=== PATIENT | male | born 1965 | race Caucasian/White ===

== ENCOUNTER 2016-10-08 15:02 | Emergency (ER) | payer BC, OTHER ==
[~2016-10-08] VITALS: Ht 182.9 cm; Wt 91.8 kg
[2016-10-08 15:16] VITALS: BP 176/95; TEMP 37.2; Ht 182.9 cm; Wt 91.8 kg
[2016-10-08] MEDS ORDERED: TRAM-10 PO (15:47)
[2016-10-08] MEDS ORDERED: NAPR1TAB9 PO (15:59)
[2016-10-08 16:25] VITALS: PULSE 93; O2SAT 98
--- NOTE | 2016-10-08 16:44 | EMERGENCY ROOM VISIT NOTE ---
History First contact with patient: 15:18 Chief Complaint: HAND PAIN/INJURY Stated Complaint: PAIN IN HAND, LUMP ON IT History of Present Illness The patient is a 51 year old male who presents to the Emergency Room with complaints of multiple joint pain and swelling. The patient reports that he has noticed discomfort for the past 6 months. He has been treating his symptoms with NSAIDs without relief. He currently does not have a family doctor. He denies any family history of inflammatory joint conditions. The patient denies any fevers or chills, headache or other illnesses. He has not noticed any redness or increased temperature of his joints. The pain is usually worse in the morning after awakening. He rates his discomfort a 2 out of 10. Review of Systems 10 system review was performed and was negative except for pertinent positives and negatives as indicated in history of present illness Past Medical/Surgical History Medical Problems: (1) Carpal Tunnel Syndrome Surgical Problems: (1) No history of previous surgery Social History Smoking Status: Never Smoker Alcohol Use: occasionally Marital Status: Occupation Status: employed Current/Historical Medications Scheduled Naproxen (Aleve), 660 MG PO PRN Scheduled PRN Tramadol (Ultram), 1-2 TAB PO Q4H PRN for Pain Allergies Coded Allergies: No Known Allergies (Unverified , 10/08/16) Physical Exam Vital Signs Date Time Temp Pulse Resp B/P Pulse Ox O2 Delivery O2 Flow Rate FiO2 10/08/16 16:25 93 18 98 10/08/16 15:16 37.2 97 18 176/95 96 Room Air Pain Rating (0-10): 5.0 Physical Exam CONSTITUTIONAL: Healthy and well nourished. Alert and oriented X 3 with positive affect. HEENT: Normocephalic, atraumatic. Pupils equal, round and reactive. Sclerae icterus or conjunctival injection/pallor. OROPHARYNX: No tonsillar hypertrophy or exudates. NECK: Full active range of motion without discomfort. No JVD or carotid bruits. LYMPHATICS: No adenopathy appreciated. RESPIRATORY: Clear to auscultation bilaterally with no wheezing, crackles, rhonchi or stridor. CARDIOVASCULAR: Regular rate and rhythm with a grade 2/6 systolic ejection murmur at Erb's point. No rubs or gallops. GASTROINTESTINAL: Bowel sounds present in all quadrants. Soft and nontender to palpation. No hepatosplenomegaly. MUSCULOSKELETAL: Full range of motion of all joints without discomfort. The patient does have inflammation of the MCP joints. He also has a soft mass on the dorsal left wrist. He also has inflammation of bilateral ankles. The patient has no erythema over the joints. INTEGUMENTARY: No rash or other significant dermatologic conditions noted. NEUROLOGIC: Cranial nerves II-XII grossly intact. No focal neurologic deficits noted. Medical Decision & Procedures ED Course Patient history and physical exam were performed. Nurse's notes were reviewed. Vital signs were reviewed and were normal. I expressed my concern for an inflammatory arthritis. The patient was provided contact information for the [facility] rheumatology office. He was encouraged to alternate ibuprofen and Tylenol for baseline pain relief. He was provided a prescription for Ultram as needed for breakthrough pain. The patient was happy with plan of care, and will follow-up with rheumatology for further workup. Impression Primary Impression: Polyarthropathy or polyarthritis of multiple sites Departure Information Dispostion Home / Self-Care Prescriptions Tramadol (Ultram) 50 Mg Tab 1-2 TAB PO Q4H Y for Pain, #30 TAB For Initial Treatment Prov: Wagner Smith PA 10/08/16 Referrals Annalee Padilla MD Forms HOME CARE DOCUMENTATION FORM, IMPORTANT VISIT INFORMATION Patient Instructions My [facility] Additional Instructions Follow-up with [facility] rheumatology office (Dr. Annalee Padilla) for further reevaluation and workup. Call the office for an appointment, and tell them that you were seen in the emergency department and concern for a possible inflammatory arthritis. Ibuprofen 800 mg and/or Tylenol 1000 mg every 8 hours. You may also alternate these medications for more effective pain relief: Ibuprofen --4 HRS--> Tylenol --4 HRS--> ibuprofen --4 HRS--> Tylenol .... Take Ultram as prescribed and as needed for additional pain relief. Ultram should not make you drowsy.
== END 2016-10-08 16:00 | disposition home or self-care (01) ==
LOC: C.EDB 15:05 → C.EDD 16:00
DX: M13.0 Polyarthritis, unspecified (principal)

== ENCOUNTER → 2016-10-30 | Outpatient (CLI) | payer BC ==
[~2016-10-30] MED LIST: NAPR1TAB9 PO; TRAM-10 PO
[2016-10-30 09:20] LABS: BASO % 0.6 %; BASO ABS # 0.03 K/uL (0-0.2); COMPLETE YES; EOS % 1.9 %; HEMATOCRIT 32.7 % (42-52); IG% 0.2 %; LYMPH % 26.3 %; LYMPH ABS # 1.37 K/uL (1.2-3.4); MEAN CELL VOLUME 74.8 fL (80-100); MEAN CORPUSCULAR HEMOGLOBIN 24.3 pg (25-34); MEAN CORPUSCULAR HGB CONC 32.4 g/dl (32-36); MEAN PLATELET VOLUME 9.3 fL (7.4-10.4); MONO % 11.5 %; NEUT % 59.5 %; PLATELET COUNT 386 K/uL (130-400); RED BLOOD COUNT 4.37 M/uL (4.7-6.1)
[2016-10-30 09:49] LABS: BLOOD UREA NITROGEN 8 mg/dl (7-18); BUN/CREATININE RATIO 9.7 (10-20); CALCIUM 8.7 mg/dl (8.5-10.1); CARBON DIOXIDE 25 mmol/L (21-32); CHLORIDE 100 mmol/L (98-107); CREATININE 0.77 mg/dl (0.60-1.40); GLUCOSE 312 mg/dl (70-99); SODIUM 133 mmol/L (136-145)
[2016-10-30 09:52] LABS: ALKALINE PHOSPHATASE 84 U/L (45-117); ALT/SGPT 19 U/L (12-78); AST/SGOT 9 U/L (15-37); CHOLESTEROL 139 mg/dl (0-200); CHOLESTEROL/HDL RATIO 4.3; HDL CHOLESTEROL 32 mg/dl; LDL CHOLESTEROL CALCULATED 86 mg/dl; TRIGLYCERIDES 104 mg/dl (0-150); VERY LOW DENSITY LIPOPROT CALC 21 mg/dl
[2016-10-30 09:59] LABS: ALB/GLOB RATIO 0.5 (0.9-2)
[2016-10-30 11:07] LABS: LYME DISEASE AB IGG NEG (NEG); LYME DISEASE AB IGM NEG (NEG)
== END | disposition home or self-care (01) ==
LOC: C.LAB 08:25
PROVIDERS: ATTEND Neuromusculoskeletal Medicine & OMM
DX: Z00.00 Encounter for general adult medical examination without abnormal findings (principal); K62.5 Hemorrhage of anus and rectum; R35.0 Frequency of micturition; M19.90 Unspecified osteoarthritis, unspecified site; R35.8 Other polyuria

== ENCOUNTER → 2016-11-06 | Outpatient (CLI) | payer BC ==
[2016-11-06 10:05] LABS: ESTIMATED AVERAGE GLUCOSE 292 mg/dl; HA1C FLAG Normal (Normal)
== END | disposition home or self-care (01) ==
LOC: C.LAB 07:46
PROVIDERS: ATTEND Neuromusculoskeletal Medicine & OMM
DX: E11.9 Type 2 diabetes mellitus without complications (principal)

== ENCOUNTER → 2016-11-22 | Outpatient (CLI) | payer BC ==
[2016-11-22 12:23] LABS: BASO % 0.5 %; BASO ABS # 0.03 K/uL (0-0.2); COMPLETE YES; EOS % 0.9 %; HEMATOCRIT 33.5 % (42-52); IG% 0.4 %; LYMPH % 26.2 %; LYMPH ABS # 1.45 K/uL (1.2-3.4); MEAN CORPUSCULAR HEMOGLOBIN 22.7 pg (25-34); MEAN PLATELET VOLUME 9.3 fL (7.4-10.4); MONO % 13.5 %; NEUT % 58.5 %; PLATELET COUNT 395 K/uL (130-400); RED BLOOD COUNT 4.59 M/uL (4.7-6.1); WHITE BLOOD COUNT 5.54 K/uL (4.8-10.8)
[2016-11-22 12:34] LABS: PROTHROMBIN TIME (PATIENT) 10.8 SECONDS (9.0-12.0)
[2016-11-22 13:08] LABS: TOTAL IRON BINDING CAPACITY 224 mcg/dl (250-450)
== END | disposition home or self-care (01) ==
LOC: C.LABPVFM 10:36
PROVIDERS: ATTEND Neuromusculoskeletal Medicine & OMM
DX: R04.0 Epistaxis (principal); R53.83 Other fatigue; D64.9 Anemia, unspecified

== ENCOUNTER → 2016-11-22 | Outpatient (CLI) | payer BC ==
--- NOTE | 2016-11-22 15:51 | DIAGNOSTIC IMAGING REPORT ---
LEFT HAND 3 VIEWS CLINICAL HISTORY: Hand pain. FINDINGS: 3 views of the left hand are obtained. No prior studies are available for comparison at the time of dictation. No acute fracture is seen. The skeletal structures appear osteopenic. There is advanced arthritic change and joint space loss seen throughout the wrist involving the radiocarpal articulation, the intercarpal joints, and at the carpometacarpal articulations. There is associated bony sclerosis and subchondral cyst formation. Only minimal osteoarthritic change is present involving the first metacarpophalangeal joint and the interphalangeal joints. Erosions are questioned in the second, fourth, and fifth metacarpal heads. A radiodense/metallic foreign body is present between the first and second metacarpals. There is nonspecific irregularity along the radial shaft of the second metacarpal. IMPRESSION: 1. No acute bony abnormal is identified. 2. Advanced arthritic change is present throughout the wrist with near loss of the joint spaces. 3. Question small erosions involving the second, fourth, and fifth metacarpal heads. 4. A radiodense/metallic foreign body is present between the first and second metacarpals. Electronically signed by: Rohan Pereyra M.D. 11/22/2016 3:49 PM Dictated Date/Time: 11/22/2016 3:46 PM
--- NOTE | 2016-11-22 15:51 | DIAGNOSTIC IMAGING REPORT ---
TWO VIEW CHEST CLINICAL HISTORY: Fatigue. FINDINGS: PA and lateral chest radiographs are obtained. No prior studies are available for comparison at the time of dictation. The heart is top normal for projection. The mediastinal contour is within normal limits. The lungs and pleural spaces are clear. There is no pneumothorax. The skeletal structures are osteopenic. The bony thorax appears intact. IMPRESSION: No active disease in the chest. Electronically signed by: Rohan Pereyra M.D. 11/22/2016 3:50 PM Dictated Date/Time: 11/22/2016 3:49 PM
--- NOTE | 2016-11-22 15:54 | DIAGNOSTIC IMAGING REPORT ---
RIGHT HAND 3 VIEWS HISTORY: R53.83 [id number] Rheumatoid [id number] Long-term use of Right COMPARISON: None. FINDINGS: There is no fracture or dislocation. Small erosions at the heads of the second and third metacarpals. Mild cartilage space narrowing within the wrist. Mild osteoarthritis of the DIP and PIP joints. Bone mineralization is intact. No radiopaque foreign bodies. 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 Electronically signed by: Brant Mohan M.D. 11/22/2016 3:53 PM Dictated Date/Time: 11/22/2016 3:50 PM
[2016-11-28 05:01] LABS: ANTI-CENTROMERE AB <1.0 NEG AI (<1.0 NEG); ANTI-SS-A <1.0 NEG AI (<1.0 NEG); ANTI-SS-B <1.0 NEG AI (<1.0 NEG); DNA ds CRITHIDIA NEGATIVE (NEGATIVE); PARVOVIRUS IgG INDEX 2.2 (<0.9); PARVOVIRUS IgM INDEX 0.1 (<0.9); Sm Antibody <1.0 NEG AI (<1.0 NEG)
== END | disposition home or self-care (01) ==
LOC: C.RAD1850 15:07
PROVIDERS: ATTEND Internal Medicine Rheumatology
DX: M06.9 Rheumatoid arthritis, unspecified (principal); R53.83 Other fatigue; M19.032 Primary osteoarthritis, left wrist; Z79.899 Other long term (current) drug therapy; Z18.10 Retained metal fragments, unspecified

== ENCOUNTER → 2017-01-31 | Outpatient (CLI) | payer BC ==
[2017-01-31 12:17] LABS: BASO % 0.3 %; BASO ABS # 0.02 K/uL (0-0.2); EOS % 0.3 %; HEMATOCRIT 39.4 % (42-52); IG% 1.7 %; LYMPH % 20.9 %; LYMPH ABS # 1.23 K/uL (1.2-3.4); MEAN CELL VOLUME 79.8 fL (80-100); MEAN CORPUSCULAR HEMOGLOBIN 27.3 pg (25-34); MEAN CORPUSCULAR HGB CONC 34.3 g/dl (32-36); MEAN PLATELET VOLUME 9.5 fL (7.4-10.4); MONO % 7.1 %; NEUT % 69.7 %; PLATELET COUNT 187 K/uL (130-400); RED BLOOD COUNT 4.94 M/uL (4.7-6.1); WHITE BLOOD COUNT 5.88 K/uL (4.8-10.8)
[2017-01-31 12:27] LABS: ALT/SGPT 39 U/L (12-78); CREATININE 0.99 mg/dl (0.60-1.40)
[2017-01-31 12:30] LABS: ALKALINE PHOSPHATASE 65 U/L (45-117); AST/SGOT 10 U/L (15-37)
[2017-01-31 13:00] LABS: ANISOCYTOSIS PRESENT; COMPLETE YES; MICROCYTOSIS PRESENT
== END | disposition home or self-care (01) ==
LOC: C.LAB1850 10:44
PROVIDERS: ATTEND Internal Medicine Rheumatology
DX: Z79.899 Other long term (current) drug therapy (principal); M06.9 Rheumatoid arthritis, unspecified

== ENCOUNTER → 2017-03-14 | Outpatient (CLI) | payer BC ==
[2017-03-14 10:47] LABS: BASO % 0.8 %; BASO ABS # 0.05 K/uL (0-0.2); COMPLETE YES; EOS % 1.4 %; HEMATOCRIT 41.3 % (42-52); IG% 0.8 %; LYMPH % 33.9 %; LYMPH ABS # 2.11 K/uL (1.2-3.4); MEAN CELL VOLUME 89.6 fL (80-100); MEAN CORPUSCULAR HEMOGLOBIN 28.6 pg (25-34); MEAN PLATELET VOLUME 9.5 fL (7.4-10.4); MONO % 8.2 %; NEUT % 54.9 %; PLATELET COUNT 203 K/uL (130-400); RED BLOOD COUNT 4.61 M/uL (4.7-6.1); WHITE BLOOD COUNT 6.23 K/uL (4.8-10.8)
[2017-03-14 11:15] LABS: ALT/SGPT 32 U/L (12-78); CREATININE 0.83 mg/dl (0.60-1.40)
[2017-03-14 11:18] LABS: ALKALINE PHOSPHATASE 56 U/L (45-117); AST/SGOT 14 U/L (15-37)
== END | disposition home or self-care (01) ==
LOC: C.LAB1850 09:26
PROVIDERS: ATTEND Internal Medicine Rheumatology
DX: D64.9 Anemia, unspecified (principal); M06.9 Rheumatoid arthritis, unspecified; Z51.81 Encounter for therapeutic drug level monitoring; Z79.899 Other long term (current) drug therapy

== ENCOUNTER → 2017-07-15 | Outpatient (CLI) | payer BC ==
[~2017-07-15] MED LIST changes: -TRAM-10 PO
[2017-07-15 15:43] LABS: BASO % 0.4 %; BASO ABS # 0.02 K/uL (0-0.2); EOS ABS # 0.09 K/uL (0-0.5); HEMATOCRIT 39.9 % (42-52); HEMOGLOBIN 13.6 g/dL (14.0-18.0); IG# 0.01 K/uL (0.00-0.02); LYMPH % 33.2 %; LYMPH ABS # 1.51 K/uL (1.2-3.4); MEAN CELL VOLUME 86.2 fL (80-100); MEAN CORPUSCULAR HEMOGLOBIN 29.4 pg (25-34); MEAN CORPUSCULAR HGB CONC 34.1 g/dl (32-36); MONO % 9.7 %; MONO ABS # 0.44 K/uL (0.11-0.59); NEUT % 54.5 %; NEUT ABS # 2.48 K/uL (1.4-6.5); PLATELET COUNT 255 K/uL (130-400); RED CELL DISTRIBUTION WIDTH CV 13.5 % (11.5-14.5); RED CELL DISTRIBUTION WIDTH SD 41.9 fL (36.4-46.3); WHITE BLOOD COUNT 4.55 K/uL (4.8-10.8)
[2017-07-15 16:02] LABS: ALBUMIN 3.5 gm/dl (3.4-5.0); ALT/SGPT 28 U/L (12-78); CREATININE 1.04 mg/dl (0.60-1.40)
[2017-07-15 16:05] LABS: ALKALINE PHOSPHATASE 72 U/L (45-117); AST/SGOT 11 U/L (15-37); TOTAL PROTEIN 7.9 gm/dl (6.4-8.2)
== END | disposition home or self-care (01) ==
LOC: C.LAB1850 13:27
PROVIDERS: ATTEND Internal Medicine Rheumatology
DX: M06.9 Rheumatoid arthritis, unspecified (principal); Z79.899 Other long term (current) drug therapy

== ENCOUNTER → 2017-07-25 | Outpatient (CLI) | payer BC ==
[2017-07-25 13:21] LABS: HEMOGLOBIN A1C 8.8 % (4.5-5.6)
[2017-07-25 13:54] LABS: ALBUMIN 3.8 gm/dl (3.4-5.0); ALT/SGPT 30 U/L (12-78); AST/SGOT 17 U/L (15-37); BLOOD UREA NITROGEN 11 mg/dl (7-18); CALCIUM 9.3 mg/dl (8.5-10.1); CARBON DIOXIDE 22 mmol/L (21-32); CHOLESTEROL 198 mg/dl (0-200); CREATININE 0.85 mg/dl (0.60-1.40); GLUCOSE 237 mg/dl (70-99); POTASSIUM 4.4 mmol/L (3.5-5.1); SODIUM 131 mmol/L (136-145)
[2017-07-25 14:04] LABS: ALKALINE PHOSPHATASE 67 U/L (45-117); LDL CHOLESTEROL CALCULATED 105 mg/dl; TOTAL PROTEIN 8.2 gm/dl (6.4-8.2)
== END | disposition home or self-care (01) ==
LOC: C.LAB1850 11:34
PROVIDERS: ATTEND Neuromusculoskeletal Medicine & OMM
DX: Z00.00 Encounter for general adult medical examination without abnormal findings (principal); E11.9 Type 2 diabetes mellitus without complications

== ENCOUNTER → 2017-08-15 | Outpatient (CLI) | payer BC ==
--- NOTE | 2017-08-15 10:11 | DIAGNOSTIC IMAGING REPORT ---
CHEST 2 VIEWS ROUTINE HISTORY: Positive PPD. COMPARISON: Chest 11/20/2016. FINDINGS: The lungs are clear. Cardiac silhouette is mildly enlarged. No pleural effusions. No pneumothorax. IMPRESSION: Mild cardiomegaly. Otherwise, no acute process within the chest. Electronically signed by: Brant Mohan M.D. 08/15/2017 10:10 AM Dictated Date/Time: 08/15/2017 10:07 AM
== END | disposition home or self-care (01) ==
LOC: C.RAD1850 09:58
PROVIDERS: ATTEND Internal Medicine Rheumatology
DX: R76.11 Nonspecific reaction to tuberculin skin test without active tuberculosis (principal); M06.9 Rheumatoid arthritis, unspecified; Z79.52 Long term (current) use of systemic steroids; Z79.899 Other long term (current) drug therapy

== ENCOUNTER → 2017-09-10 | Outpatient (CLI) | payer BC ==
[2017-09-10 09:45] LABS: BASO % 0.7 %; BASO ABS # 0.03 K/uL (0-0.2); EOS % 1.6 %; EOS ABS # 0.07 K/uL (0-0.5); HEMATOCRIT 40.2 % (42-52); HEMOGLOBIN 13.3 g/dL (14.0-18.0); IG# 0.01 K/uL (0.00-0.02); LYMPH % 43.7 %; LYMPH ABS # 1.91 K/uL (1.2-3.4); MEAN CELL VOLUME 83.9 fL (80-100); MEAN CORPUSCULAR HEMOGLOBIN 27.8 pg (25-34); MEAN CORPUSCULAR HGB CONC 33.1 g/dl (32-36); MEAN PLATELET VOLUME 9.5 fL (7.4-10.4); MONO % 9.8 %; MONO ABS # 0.43 K/uL (0.11-0.59); NEUT ABS # 1.92 K/uL (1.4-6.5); PLATELET COUNT 226 K/uL (130-400); RED CELL DISTRIBUTION WIDTH CV 14.4 % (11.5-14.5); RED CELL DISTRIBUTION WIDTH SD 43.5 fL (36.4-46.3); WHITE BLOOD COUNT 4.37 K/uL (4.8-10.8)
[2017-09-10 10:11] LABS: ALBUMIN 3.7 gm/dl (3.4-5.0); ALT/SGPT 39 U/L (12-78); CREATININE 0.92 mg/dl (0.60-1.40)
[2017-09-10 10:14] LABS: ALKALINE PHOSPHATASE 70 U/L (45-117); AST/SGOT 14 U/L (15-37); TOTAL PROTEIN 7.7 gm/dl (6.4-8.2)
[2017-09-14 10:15] LABS: QUANTIFERON NEGATIVE (NEGATIVE); QUANTIFERON NIL 0.02 IU/ML
== END | disposition home or self-care (01) ==
LOC: C.LAB 09:01
PROVIDERS: ATTEND Internal Medicine Rheumatology
DX: M06.9 Rheumatoid arthritis, unspecified (principal); Z79.899 Other long term (current) drug therapy; Z79.52 Long term (current) use of systemic steroids; R76.11 Nonspecific reaction to tuberculin skin test without active tuberculosis

== ENCOUNTER 2024-07-19 22:40 | Inpatient (IN) ==
--- NOTE | 2024-07-19 23:09 | Emergency Department Note ---
Impression & Plan Acute hyponatremia, Fatigue, Influenza A, Pancytopenia, Acute anterior epistaxis ED Provider Note NAME: LUCAS VARELA AGE: 59 SEX: M : 1965 ARRIVES VIA: Walk-In INFORMANT: Patient, ED PROVIDER(S): Heriberto Brush MD CHIEF COMPLAINT: Nosebleed, cough MEDICAL DECISION MAKING: Patient presents with the above. IV was established and blood work is obtained. Afrin was ordered and applied to the left naris. BioFire also obtained along with a chest x-ray. Patient's blood work does show pancytopenia with a platelet count of 61,000. Initial hemoglobin of 12.7. Patient's kidney function is unremarkable but significant electrolyte derangements with a sodium of 118 which is new from hyponatremia noted June 15 at 131. Urine and serum osmolality ordered along with urine electrolytes. Initial calcium of 8.4. Patient was ordered 1 g for replacement. Urinalysis does not show evidence of obvious infection. BioFire negative but positive for influenza A. Tamiflu deferred to inpatient service. Chest x-ray without obvious pneumonia. Given the patient's significant hyponatremia I did speak the on-call hospital service Dr. Leggett and the patient was admitted to the medicine service. Patient still had bleeding from the naris after Afrin and TXA nebulizer treatment initiated. Subsequent reassessment no further bleeding from the naris. Procedures: Epistaxis Procedure Indication: Epistaxis Verbal consent obtained. Risks and benefits were explained with the usual customary discussion. Afrin applied and unsuccesful so nebulized TXA administered. The patient tolerated this well. Hemostasis was achieved. No complications. Discussion w/ other healthcare providers: None Prior /Outside records reviewed: none Differential diagnosis: Infection, dehydration, metabolic abnormality, hypo/hyperglycemia, electrolyte imbalance, anemia, UTI, pneumonia, thyroid dysfunction among others were considered. Diagnostics, as interpreted by me: ECG: Normal sinus rhythm, rate 92, normal intervals, normal axis no ST elevations. Cardiac monitoring: An order was placed for continuous cardiac monitoring. The monitor shows a rate of 88 with sinus rhythm. Patient was placed on pulse oximetry Medical decision rules: None Imaging studies: I informally interpreted the patient's chest x-ray does not show obvious pneumonia with formal report to follow. HPI: Patient presents due to concern for nosebleeding which is been intermittent over the last 3 days. No reported trauma. The patient has had some fatigability and associated cough. The patient has had a cough ongoing for the last 4 weeks but it is nonproductive. Patient's states that they are both sick. 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 Patient does not take any antiplatelets or blood thinners. Patient was having intermittent nosebleeding from the left naris. No reported nose picking. Patient quit smoking about 5 or 6 years ago. He did not do anything for the nosebleeding except applying pressure using rudimentary packing with Kleenex and removing this. No reported abdominal pain or nausea vomiting. PAST MEDICAL HISTORY: See Below PAST SURGICAL HISTORY: See Below SOCIAL HISTORY: See Below HOME MEDICATIONS: See Below ALLERGIES: See Below VITALS: See Below PHYSICAL EXAMINATION: GENERAL: NAD, non-toxic. Nasal clamp in place. EYE EXAM: Normal conjunctiva. PERRL, no anisocoria and EOM's grossly intact w/o pain. Nose: Bleeding from left naris. OROPHARYNX: Moist mucus membranes, grossly normal dentition. Posterior pharynx with scant amount of blood. NECK: Trachea midline, no stridor. Supple, no nuchal rigidity, no adenopathy, non-tender. No signs of meningismus. FROM of the neck with good chin to chest and neck extension. LUNGS: Clear to auscultation. Normal chest wall mechanics. HEART: NSR, no MRG. ABDOMEN: Abdomen soft, non-tender, no masses, no rebound or guarding. BACK: No CVA TTP. SKIN: No rashes and no bruising. UPPER EXTREMITIES: Upper extremities are grossly normal. LOWER EXTREMITIES: Grossly normal, no edema. NEURO EXAM: A&O x3, cranial nerves II-XII grossly intact, normal speech, moves all 4 extremities. 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) use of systemic steroids Long-term use of immunosuppressant medication Mouth ulcers Oral thrush Positive purified protein derivative (PPD) skin test with negative chest x-ray Rectal bleeding Polyarthropathy or polyarthritis of multiple sites Surgical History H/O oral surgery Family History Mother Diabetes Father Diabetes Brother Diabetes Denies family history of Ovarian cancer Prostate cancer Myocardial infarction Breast cancer Colorectal cancer Social History Smoking Status: Former smoker Tobacco Type: Cigars Age Started Using Tobacco: 14; Age Quit Using Tobacco: 48; packs per day: 1; Second Hand Exposure: No; Do You Dip or Chew Tobacco: No; Hx Alcohol Use: No Hx Substance Use: No Preferred Language: Faroese Communication Ability: Effective Visual Impairment: No Limitations Hearing Ability: Normal [employer] Required: No Beliefs That Will Affect Care: None marital status: Current Living Situation: Spouse current occupational status: employed 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 How many Children do You have: 2 Feels Safe at Home: Yes Safety Concerns: Feels Safe At This Time Childhood Exposure to Second-Hand Smoke: No Diet: regular caffeine: Yes during the past year weight has: remained stable Dental Care, Regularly: No Physical Activity Frequency: Does not Exercise Seatbelt Use: always Sunscreen Use: No Assistive Devices: None Allergies Allergies Allergy/AdvReac Type Severity Reaction Status Date / Time No Known Allergies Allergy Unverified 05/28/24 09:38 Home Meds Home Medications Medication Instructions Recorded Confirmed atorvastatin 20 mg tablet 20 mg PO DAILY 07/20/24 07/20/24 meloxicam 15 mg tablet 15 mg PO DAILY 07/20/24 07/20/24 Previous Rx's Medication Instructions Recorded empagliflozin 25 mg tablet 25 mg PO DAILY #90 tabs 05/28/24 fenofibrate nanocrystallized 145 145 mg PO DAILY #90 tabs 05/28/24 mg tablet lisinopril 20 mg tablet 20 mg PO DAILY #90 tabs 05/28/24 metformin 1,000 mg tablet 1,000 mg PO BID #180 tabs 05/28/24 glipizide 10 mg tablet 10 mg PO BID #60 tabs 06/21/24 Results & Data (ED) Vital Signs Vital Signs - 24 hr 07/19/24 22:44 07/19/24 22:58 07/19/24 23:24 Temperature 36.6 C Temperature Source Temporal Artery Scan Pulse Rate 97 H 87 Pulse Rate [Apical] 94 H Pulse Rhythm [Apical] Regular Pulse Strength [Apical] Normal Respiratory Rate 16 20 Respiratory Effort / Characteristics Non-Labored Spontaneous Respiratory Depth Normal Normal Respiratory Pattern Regular Blood Pressure 134/79 Blood Pressure [Right Arm] 132/77 Blood Pressure Mean 97 Blood Pressure Mean [Right Arm] 95 Pulse Oximetry 94 98 Oxygen Delivery Method Room Air Room Air Sepsis Recent Fever Within 48 Hours No Sepsis New/Unexplained Change in Mental Status No Sepsis Action Taken by Nursing No Action Required 07/19/24 23:40 07/20/24 00:00 07/20/24 01:00 Temperature Temperature Source Pulse Rate 88 84 Pulse Rate [Apical] Pulse Rhythm [Apical] Pulse Strength [Apical] Respiratory Rate 26 H 24 Respiratory Effort / Characteristics Respiratory Depth Respiratory Pattern Blood Pressure 150/77 H 134/69 Blood Pressure [Right Arm] Blood Pressure Mean 114 86 Blood Pressure Mean [Right Arm] Pulse Oximetry 96 97 97 Oxygen Delivery Method Room Air Sepsis Recent Fever Within 48 Hours Sepsis New/Unexplained Change in Mental Status Sepsis Action Taken by Nursing 07/20/24 01:30 Temperature Temperature Source Pulse Rate Pulse Rate [Apical] Pulse Rhythm [Apical] Pulse Strength [Apical] Respiratory Rate Respiratory Effort / Characteristics Respiratory Depth Respiratory Pattern Blood Pressure 158/85 H Blood Pressure [Right Arm] Blood Pressure Mean 118 Blood Pressure Mean [Right Arm] Pulse Oximetry Oxygen Delivery Method Sepsis Recent Fever Within 48 Hours Sepsis New/Unexplained Change in Mental Status Sepsis Action Taken by [facility] Medications Current Medication List: was personally reviewed by me Laboratory Data Attestation: I reviewed the patient's lab results. 07/20/24 03:11 07/20/24 03:11 Lab Results 07/19/24 07/19/24 07/20/24 Range/Units 23:23 23:34 00:01 WBC 3.49 L (4.8-10.8) K/ul RBC 4.51 L (4.70-6.10) M/uL Hgb 12.7 L (14.0-18.0) g/dl Hct 35.7 L (42.0-52.0) % MCV 79.2 L (80.0-100.0) fL MCH 28.2 (25.0-34.0) pg MCHC 35.6 (32.0-36.0) g/dL RDW Std Deviation 40.4 (36.4-46.3) fL RDW Coeff of Xin 14.0 (11.5-14.5) % Plt Count 61 L (130-400) K/uL MPV 11.4 (9.4-12.4) fL Immature Gran % (Auto) 0.6 % Neut % (Auto) 74.2 % Lymph % (Auto) 15.5 % [place] % (Auto) 9.7 % Eos % (Auto) 0.0 % Baso % (Auto) 0.0 % Neut # (Auto) 2.59 (1.40-6.50) K/uL Lymph # (Auto) 0.54 L (1.20-3.40) K/uL [place] # (Auto) 0.34 (0.11-0.59) K/uL Eos # (Auto) 0.00 (0.00-0.50) K/uL Baso # (Auto) 0.00 (0.00-0.20) K/uL Immature Gran # (Auto) 0.02 (0.01-0.20) K/uL Platelet Estimate Decreased L (Normal) RBC Morphology Unremarkable PT 9.8 (9.0-12.0) Seconds INR 0.9 (0.9-1.1) APTT 32 H (21-31) Seconds PTT Ratio 1.2 Sodium 118 L* (136-145) mmol/L Potassium 3.6 (3.5-5.1) mmol/L Chloride 86 L (98-107) mmol/L Carbon Dioxide 17 L (21-32) mmol/L Anion Gap 15 H (3-11) BUN 21 (6-23) mg/dl Creatinine 1.12 (0.6-1.4) mg/dl Est Cr Clr Drug Dosing 77.4 ml/min eGFR 74.74 BUN/Creatinine Ratio 18.8 (10-20) Glucose 223 H (70-99(Fasting)) mg/dl Osmolality 266 L (280-300) mOsm/kg Calcium 8.4 L (8.6-10.3) mg/dl Phosphorus 3.6 (2.5-4.9) mg/dl Magnesium 2.1 (1.7-2.4) mg/dl Total Bilirubin 0.9 (0.2-1.0) mg/dl AST 27 (13-39) U/L ALT 17 (7-52) U/L Alkaline Phosphatase 52 (34-104) U/L Total Protein 7.5 (6.0-8.3) gm/dl Albumin 3.7 (3.4-5.0) gm/dl Globulin 3.8 (2.5-4.0) gm/dl Albumin/Globulin Ratio 1.0 (0.9-2) TSH 0.748 (0.300-4.500) uIu/ml Urine Color Urine Appearance (Clear) Urine pH (4.5-7.5) Ur Specific [place] (1.000-1.030) Urine Protein (Negative) Urine Glucose (UA) (Negative) Urine Ketones (Negative) Urine Blood (Negative) Urine Nitrite (Negative) Urine Bilirubin (Negative) Urine Urobilinogen (Negative) Ur Leukocyte Esterase (Negative) Urine WBC (Auto) (0-5) /hpf Urine RBC (Auto) (0-2) /hpf U Hyaline Cast (Auto) (0-2) /lpf U Epithel Cells (Auto) (0-2) /hpf Urine Bacteria (Auto) (None Seen) Urine Osmolality (500-800) mOsm/kg Urine Sodium mmol/L Urine Potassium mmol/L Urine Chloride mmol/L Nasal Influ A H1 2008 PCR DETECTED A (NotDetected) Adenovirus (PCR) Not Detected (NotDetected) B. pertussis DNA (PCR) Not Detected (NotDetected) B.parapertussis DNA PCR Not Detected (NotDetected) C. pneumoniae DNA (PCR) Not Detected (NotDetected) Coronavirus OC43 (PCR) Not Detected (NotDetected) Coronavirus HKU1 (PCR) Not Detected (NotDetected) Coronavirus 229E (PCR) Not Detected (NotDetected) SARS-CoV-2 (PCR) Not Detected (NotDetected) Coronavirus NL63 (PCR) Not Detected (NotDetected) Human Metapneumovir PCR Not Detected (NotDetected) Influenza Type B (PCR) Not Detected (NotDetected) M. pneumoniae (PCR) Not Detected (NotDetected) Parainfluenza 1 (PCR) Not Detected (NotDetected) Parainfluenza 2 (PCR) Not Detected (NotDetected) Parainfluenza 3 (PCR) Not Detected (NotDetected) Parainfluenza 4 (PCR) Not Detected (NotDetected) RSV (PCR) Not Detected (NotDetected) Entero/Rhino (PCR) Not Detected (NotDetected) 07/20/24 Range/Units 01:23 WBC (4.8-10.8) K/ul RBC (4.70-6.10) M/uL Hgb (14.0-18.0) g/dl Hct (42.0-52.0) % MCV (80.0-100.0) fL MCH (25.0-34.0) pg MCHC (32.0-36.0) g/dL RDW Std Deviation (36.4-46.3) fL RDW Coeff of Xin (11.5-14.5) % Plt Count (130-400) K/uL MPV (9.4-12.4) fL Immature Gran % (Auto) % Neut % (Auto) % Lymph % (Auto) % [place] % (Auto) % Eos % (Auto) % Baso % (Auto) % Neut # (Auto) (1.40-6.50) K/uL Lymph # (Auto) (1.20-3.40) K/uL [place] # (Auto) (0.11-0.59) K/uL Eos # (Auto) (0.00-0.50) K/uL Baso # (Auto) (0.00-0.20) K/uL Immature Gran # (Auto) (0.01-0.20) K/uL Platelet Estimate (Normal) RBC Morphology PT (9.0-12.0) Seconds INR (0.9-1.1) APTT (21-31) Seconds PTT Ratio Sodium (136-145) mmol/L Potassium (3.5-5.1) mmol/L Chloride (98-107) mmol/L Carbon Dioxide (21-32) mmol/L Anion Gap (3-11) BUN (6-23) mg/dl Creatinine (0.6-1.4) mg/dl Est Cr Clr Drug Dosing ml/min eGFR BUN/Creatinine Ratio (10-20) Glucose (70-99(Fasting)) mg/dl Osmolality (280-300) mOsm/kg Calcium (8.6-10.3) mg/dl Phosphorus (2.5-4.9) mg/dl Magnesium (1.7-2.4) mg/dl Total Bilirubin (0.2-1.0) mg/dl AST (13-39) U/L ALT (7-52) U/L Alkaline Phosphatase (34-104) U/L Total Protein (6.0-8.3) gm/dl Albumin (3.4-5.0) gm/dl Globulin (2.5-4.0) gm/dl Albumin/Globulin Ratio (0.9-2) TSH (0.300-4.500) uIu/ml Urine Color Yellow Urine Appearance Clear (Clear) Urine pH 5.0 (4.5-7.5) Ur Specific [place] 1.025 (1.000-1.030) Urine Protein 2+ H (Negative) Urine Glucose (UA) 3+ H (Negative) Urine Ketones 2+ H (Negative) Urine Blood 2+ H (Negative) Urine Nitrite Negative (Negative) Urine Bilirubin Negative (Negative) Urine Urobilinogen Negative (Negative) Ur Leukocyte Esterase Negative (Negative) Urine WBC (Auto) 0-5 (0-5) /hpf Urine RBC (Auto) 0-2 (0-2) /hpf U Hyaline Cast (Auto) 0-2 (0-2) /lpf U Epithel Cells (Auto) 0-2 (0-2) /hpf Urine Bacteria (Auto) None Seen (None Seen) Urine Osmolality 461 L (500-800) mOsm/kg Urine Sodium 16 mmol/L Urine Potassium 21.0 mmol/L Urine Chloride < 15 mmol/L Nasal Influ A H1 2009 PCR (NotDetected) Adenovirus (PCR) (NotDetected) B. pertussis DNA (PCR) (NotDetected) B.parapertussis DNA PCR (NotDetected) C. pneumoniae DNA (PCR) (NotDetected) Coronavirus OC43 (PCR) (NotDetected) Coronavirus HKU1 (PCR) (NotDetected) Coronavirus 229E (PCR) (NotDetected) SARS-CoV-2 (PCR) (NotDetected) Coronavirus NL63 (PCR) (NotDetected) Human Metapneumovir PCR (NotDetected) Influenza Type B (PCR) (NotDetected) M. pneumoniae (PCR) (NotDetected) Parainfluenza 1 (PCR) (NotDetected) Parainfluenza 2 (PCR) (NotDetected) Parainfluenza 3 (PCR) (NotDetected) Parainfluenza 4 (PCR) (NotDetected) RSV (PCR) (NotDetected) Entero/Rhino (PCR) (NotDetected) Administered Medications Sodium Chloride (Sodium Chloride 1 Gm Tablet) 1 gm PO BID FELICITY Stop: 08/19/24 01:44 Last Admin: 07/20/24 03:10 Dose: 1 gm Documented By: AILYN Discontinued Medications Sodium Chloride (Nss) 500 mls @ 999 mls/hr IV .Q31M ONE Stop: 07/19/24 23:56 Last Infusion: 07/20/24 00:10 Dose: Infused Documented By: Admin: 07/19/24 23:37 Dose: 999 mls/hr Documented By: AILYN Calcium Gluconate () 1,000 mg in 60 mls @ 240 mls/hr IV NOW STA Stop: 07/20/24 01:00 Last Infusion: 07/20/24 01:22 Dose: Infused Documented By: Admin: 07/20/24 01:02 Dose: 240 mls/hr Documented By: AILYN Sodium Chloride (Hypertonic Saline 3%) 100 mls @ 600 mls/hr IV .Q10M ONE; Protocol Stop: 07/20/24 01:49 Last Infusion: 07/20/24 02:10 Dose: Infused Documented By: AILYN Co-signed By: KEVYN Admin: 07/20/24 01:58 Dose: 600 mls/hr Documented By: AILYN Co-signed By: FELIZ Pantoprazole Sodium (Protonix) 40 mg in 10 mls @ 5 mls/min IV ONE ONE Stop: 07/20/24 02:01 Last Admin: 07/20/24 02:15 Dose: 5 mls/min Documented By: AILYN Oxymetazoline HCl (Oxymetazoline 0.05% 30 Ml Btl) 1 sprays NA NOW ONE Stop: 07/19/24 23:24 Last Admin: 07/19/24 23:34 Dose: 1 sprays Documented By: AILYN Potassium Chloride (Potassium Chloride Crtab 20 Meq Tabcr) 40 meq PO NOW STA Stop: 07/20/24 02:09 Last Admin: 07/20/24 03:10 Dose: 40 meq Documented By: AILYN Tranexamic Acid (Txa 10% Non-Iv Routes 100 Mg/Ml Vial) 500 mg NEB ONE ONE Stop: 07/20/24 01:17 Last Admin: 07/20/24 01:37 Dose: 500 mg Documented By: AILYN Imaging Data Radiologist's Impression: Chest X-Ray 07/19/24 23:23 EXAM: XR chest 1V portable CLINICAL HISTORY: COUGH SDM TECHNIQUE: An X-ray image of the chest is obtained in AP projection. COMPARISON: 08/15/2017 FINDINGS: Pulmonary Parenchyma: No evidence of consolidation, collapse, or focal opacities. Bilateral hilar prominence and prominent bronchovascular markings. Left lower zone opacity. No evidence of pleural effusion or pleural thickening. Heart and Mediastinum: Mild cardiomegaly. No mediastinal masses. No hilar or mediastinal lymphadenopathy. Bony Thorax: Bony thorax appears intact without fractures or deformities. Soft Tissues: Soft tissues overlying the chest wall are unremarkable. IMPRESSION: 1. Mild cardiomegaly. 2. Bilateral hilar prominence and prominent bronchovascular markings. Could be vascular congestion or peribronchial thickening. 3. No significant interval change. Electronically signed by Sondra Cole 07-20-2024 01:02 AM Discharge Plan Visit Data Chief Complaint: Nose Bleed (Minor) Stated Complaint: NOSE BLEED, COUGH, WEAKNESS, SHAKEY ED Provider: Heriberto Brush Discharge Problem: Acute hyponatremia, Fatigue, Influenza A, Pancytopenia, Acute anterior epistaxis Discharge Instructions Interventions: ED Discharge Assessment Last Done: 07/20/24 02:21 Discharge Problem: Fatigue Qualifiers: Fatigue type: unspecified Qualified Code(s): R53.83 - Other fatigue
[2024-07-19] MEDS: OXYMETAZOLINE 0.05% 30 ML BTL ONE (23:34)
[2024-07-19] MEDS: SODIUM CHLORIDE 0.9% 500 ML IV ONE (23:37)
[2024-07-20 00:27] LABS: Albumin Level 3.7 gm/dl (3.4-5.0); BUN Creatinine Ratio 18.8 (10-20); Bilirubin,Total 0.9 mg/dl (0.2-1.0); Calcium 8.4 mg/dl (8.6-10.3); Creatinine Clr Calc Pharmacy 77.4 ml/min; Globulin 3.8 gm/dl (2.5-4.0); Potassium 3.6 mmol/L (3.5-5.1); Thyroid Stimulating Hormone 0.748 uIu/ml (0.300-4.500); Total Protein 7.5 gm/dl (6.0-8.3)
[2024-07-20 00:38] LABS: Hematocrit (blood only) 35.7 % (42.0-52.0); Hemoglobin 12.7 g/dl (14.0-18.0); Immature Granulocytes # (auto) 0.02 K/uL (0.01-0.20); Immature Granulocytes % (auto) 0.6 %; Lymphocytes # (auto) 0.54 K/uL (1.20-3.40); Lymphocytes % (auto) 15.5 %; Mean Corpuscular Hemoglobin 28.2 pg (25.0-34.0); Mean Corpuscular Hgb Conc 35.6 g/dL (32.0-36.0); Mean Corpuscular Volume 79.2 fL (80.0-100.0); Mean Platelet Volume 11.4 fL (9.4-12.4); Monocytes # (auto) 0.34 K/uL (0.11-0.59); Monocytes % (auto) 9.7 %; Neutrophils # (auto) 2.59 K/uL (1.40-6.50); Neutrophils % (auto) 74.2 %; Platelet Count 61 K/uL (130-400); Platelet Estimate Decreased (Normal); RBC Morphology Unremarkable; RDW Standard Deviation 40.4 fL (36.4-46.3); Red Blood Count 4.51 M/uL (4.70-6.10); White Blood Count 3.49 K/ul (4.8-10.8)
[2024-07-20 00:50] LABS: INR 0.9 (0.9-1.1); Partial Thromboplastin Ratio 1.2; Partial Thromboplastin Time 32 Seconds (21-31); Prothrombin Time 9.8 Seconds (9.0-12.0)
--- NOTE | 2024-07-20 00:58 | History & Physical Report ---
Date of Service July 20, 2024 Assessment & Plan (1) Hyponatremia: Plan: suspect secondary to hypovolemia with diarrhea although SIADH in differential Patient with NA of 118 symptomatic with fatigue TSH WNL, phosphorus WNL Serum osmol 266, Urine NA 16, Urine Osmol 461 500 mL NSS in ED start sodium chloride 1G p.o. twice daily Hypertonic saline 3% 100 mL on admission serum cortisol with AM labs BMP Q4H (2) Thrombocytopenia: Plan: suspect possible ITP Platelets 66 Peripheral smear ordered Trend CBC (3) Melena: Plan: suspect secondary to epi taxis of the GI bleed within differential Patient has never had colonoscopy Will make n.p.o. GI consult IV Protonix diarrhea - stool cultures ordered (4) Hypochloremia: Plan: chloride 86 on admission Anion gap 15 trend BMP (5) Hypokalemia: Plan: K+ 3.6 will give 40 meq PO on admission Mg WNL, 2.1 trend BMP and Mg (6) Influenza A: Plan: fatigue, dizziness, cough times x 5 days CXR mild cardiomegaly, bilateral hilar prominence and prominent bronchovascular markings - congestion versus peribronchial thickening outside of tamiflu window supportive care - hydration, tylenol prn (7) Epistaxis: Plan: x 3 days Afrin + tranexamic acid neb in ED Mildly anemic, Hgb 12.7 thrombocytopenia - platelets 66 Trend CBC (8) Diabetes mellitus: Plan: Controlled on Jardiance, metformin, glipizide at home; hold Most recent A1C 10.5 in June 2024 anion gap 15 on admission - glucose 223 SSI with target BSG range 110-140 mg/dL, CF 25, carb ratio 12 Plan Patient is a 59-year-old male with past medical history of hyperlipidemia, DM, hypertension, rheumatoid arthritis. He presents today due to nosebleed x 3 days. Is also noted that he has had fatigue and a cough for 4 weeks. He is being admitted for hyponatremia with a sodium of 118. Chronic stable diagnoses: HTN - Continue lisinopril Hyperlipidemia - continue statin and fenofibrate VTE ppx: SCDs, defer chemical PPx given epistaxis Diet: NPO Dispo: med surg Admission and Anticipated Discharge Date Admission Date: 07/20/24 History of Present Illness Primary Care Provider: Fausto Basurto DO Patient is a 59-year-old male with past medical history of hyperlipidemia, DM, hypertension, rheumatoid arthritis. He presented to ED today due to nosebleed x 3 days. He is being admitted for hyponatremia with a sodium of 118 along with GI bleed workup due to melena. Patient seen at bedside. 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 He endorses fatigue, dizziness, cough, diarrhea since Tuesday. He stated that the diarrhea is loose and watery; he also endorses melena. He stated he has roughly 1-2 episodes of diarrhea a day since Tuesday. He has never had a colonoscopy before. He did state he had antibiotics roughly 3 months ago for a tooth infection. He also endorses occasional fever and dyspnea. Patient denies easily bruisability, sputum production, chest pain, abdominal pain, nausea, vomiting. Does not use nicotine products or drink alcohol regularly. He denies past history of cancer or previous VTE. He did not take his home medications this evening. He wishes to be DNR/DNI. Allergies Allergy/AdvReac Type Severity Reaction Status Date / Time No Known Allergies Allergy Unverified 05/28/24 09:38 Home Medications Medication Instructions Recorded Confirmed Type empagliflozin 25 mg tablet 25 mg PO DAILY #90 tabs 05/28/24 07/20/24 Rx fenofibrate nanocrystallized 145 145 mg PO DAILY #90 tabs 05/28/24 07/20/24 Rx mg tablet lisinopril 20 mg tablet 20 mg PO DAILY #90 tabs 05/28/24 07/20/24 Rx metformin 1,000 mg tablet 1,000 mg PO BID #180 tabs 05/28/24 07/20/24 Rx glipizide 10 mg tablet 10 mg PO BID #60 tabs 06/21/24 07/20/24 Rx atorvastatin 20 mg tablet 20 mg PO DAILY 07/20/24 07/20/24 History meloxicam 15 mg tablet 15 mg PO DAILY 07/20/24 07/20/24 History Past Med/Surg History Problem List (Updated 07/20/24 @ 01:45 by Bev Clement PA-C) Thrombocytopenia Melena Influenza A Hypokalemia Hypochloremia Cough Epistaxis Hyponatremia Dyslipidemia (Chronic) Diabetes mellitus (Chronic) Fatigue (Acute) GERD without esophagitis (Acute) Hypertension (Chronic) Rheumatoid arthritis (Chronic) Medical History (Updated 07/20/24 @ 01:45 by Bev Clement PA-C) Anemia Hearing loss 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 (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) use of systemic steroids Long-term use of immunosuppressant medication Mouth ulcers Oral thrush Positive purified protein derivative (PPD) skin test with negative chest x-ray Rectal bleeding Polyarthropathy or polyarthritis of multiple sites Surgical History H/O oral surgery Family History Mother Diabetes Father Diabetes Brother Diabetes Denies family history of Ovarian cancer Prostate cancer Myocardial infarction Breast cancer Colorectal cancer Social History Smoking Status: Former smoker Tobacco Type: Cigars Age Started Using Tobacco: 14; Age Quit Using Tobacco: 48; packs per day: 1; Second Hand Exposure: No; Do You Dip or Chew Tobacco: No; Hx Alcohol Use: No Hx Substance Use: No Preferred Language: Iranian Communication Ability: Effective Visual Impairment: No Limitations Hearing Ability: Normal Residential Care Officer Required: No Beliefs That Will Affect Care: None marital status: Current Living Situation: Spouse current occupational status: employed 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 Non-toxic appearing. HEENT- EOMI, mucous membranes moist. Hearing grossly intact. Nose bleeding on exam. Heart-normal S1 and S2. No murmurs, rubs or gallops. Lungs-clear bilaterally, no respiratory distress, no accessory muscle use. Abdomen-normal bowel sounds and soft. No ascites noted. Non-tender. Extremities- no clubbing, cyanosis, or edema. Rheumatologic-normal range of motion. Psychiatric-normal affect. Results & Data Results & Data Vital Signs (Past 12 Hours) Vital Signs Temp Pulse Pulse Resp BP BP Pulse Ox 07/20/24 00:00 88 26 H 150/77 H 97 07/19/24 23:40 96 07/19/24 23:24 87 07/19/24 22:58 94 H 20 132/77 98 07/19/24 22:44 36.6 C 97 H 16 134/79 94 O2 Del Method 07/20/24 00:00 07/19/24 23:40 Room Air 07/19/24 23:24 07/19/24 22:58 Room Air 07/19/24 22:44 Room Air Laboratory Results Reviewed CBC, PT/INR, CMP, TSH, bio fire Diagnostic Findings reviewed CXR Medications Administered ED: 500 mL NSS, calcium gluconate IV 1000 mg, Afrin, tranexamic acid neb ECG Additional Comments: NSR Code Status & VTE Plan Code Status DNR/DNI VTE Prophylaxis Plan VTE Prophylaxis will be ordered: Yes Supervising Physician Co-Signing Physician Notes Attending addendum: I have physically seen this patient, have supervised the DENA's activities, and agree with the H&P unless as otherwise noted. Assessment and Plan: The patient is a 59-year-old Scottish-speaking male who presents to the emergency department with a past medical history including diabetes mellitus, dyslipidemia, GERD without esophagitis, hypertension, rheumatoid arthritis. He presents to the emergency department with complaint of epistaxis, and generalized fatigue, and cough. #Hyponatremia- Sodium 118 on admission, serum osmolality 266, and urine osmolality 461 Placed on sodium 1 g p.o. twice daily Give 100 mL 3% hypertonic saline, follow-up sodium 121 Give additional 100 mL of 3% hypertonic saline, recheck in the a.m. labs, and continue to treat as needed Repeat BMP every 4 hours, and supplement as needed Likely secondary to mild SIADH associated with influenza A #Influenza A H 2009 strain- Patient outside treatment zone with for Tamiflu Supportive therapy otherwise #Thrombocytopenia/likely ITP- Secondary to viral process Hold meloxicam Check a peripheral smear May need steroids if lower in the a.m. presented #Diabetes mellitus- Hold glipizide and metformin Hold empagliflozin Placed on Accu-Cheks with NovoLog SSI as noted #Melena- Likely secondary to epistaxis Protonix 40 mg IV as noted Consult gastroenterology #Chronic medical issues: Hyperlipidemia-continue atorvastatin and fenofibrate Hypertension-lisinopril PG Care Time/CCT Total # of Minutes Spent Total Time Spent with Patient: Total time spent is greater than 50% in coordination of care (as documented) at patient's floor/unit and/or counseling patient: Coding Level of Care Code 82556 INT INP/OBS CARE 3/75MIN Diagnoses Hyponatremia E87.1 Thrombocytopenia D69.6 Melena K92.1 Hypochloremia E87.8 Hypokalemia E87.6 Influenza A J10.1 Epistaxis R04.0 Diabetes mellitus E11.9
[2024-07-20] MEDS: CALCIUM GLUCONATE 1,000 MG/60 ML BAG IV STA (01:02)
--- NOTE | 2024-07-20 01:02 | XRay Report ---
EXAM: XR chest 1V portable CLINICAL HISTORY: COUGH SDM TECHNIQUE: An X-ray image of the chest is obtained in AP projection. COMPARISON: 08/15/2017 FINDINGS: Pulmonary Parenchyma: No evidence of consolidation, collapse, or focal opacities. Bilateral hilar prominence and prominent bronchovascular markings. Left lower zone opacity. No evidence of pleural effusion or pleural thickening. Heart and Mediastinum: Mild cardiomegaly. No mediastinal masses. No hilar or mediastinal lymphadenopathy. Bony Thorax: Bony thorax appears intact without fractures or deformities. Soft Tissues: Soft tissues overlying the chest wall are unremarkable. IMPRESSION: 1. Mild cardiomegaly. 2. Bilateral hilar prominence and prominent bronchovascular markings. Could be vascular congestion or peribronchial thickening. 3. No significant interval change. Electronically signed by Sondra Cole 07-20-2024 01:02 AM
[2024-07-20 01:07] LABS: Adenovirus PCR Not Detected (NotDetected); Bordetella parapertussis PCR Not Detected (NotDetected); Bordetella pertussis PCR Not Detected (NotDetected); Chlamydia pneumoniae PCR Not Detected (NotDetected); Coronavirus 229E PCR Not Detected (NotDetected); Coronavirus CoV-2 (COVID19)PCR Not Detected (NotDetected); Coronavirus HKU1 PCR Not Detected (NotDetected); Coronavirus NL63 PCR Not Detected (NotDetected); Coronavirus OC43PCR Not Detected (NotDetected); Human Metapneumovirus PCR Not Detected (NotDetected); Influenza A (H1 2009) PCR DETECTED (NotDetected); Influenza B PCR Not Detected (NotDetected); Mycoplasma pneumoniae PCR Not Detected (NotDetected); Parainfluenza Virus 1 PCR Not Detected (NotDetected); Parainfluenza Virus 2 PCR Not Detected (NotDetected); Parainfluenza Virus 3 PCR Not Detected (NotDetected); Parainfluenza Virus 4 PCR Not Detected (NotDetected); Respiratory Syncytial VirusPCR Not Detected (NotDetected); Rhinovirus/Enterovirus PCR Not Detected (NotDetected)
[2024-07-20 01:35] LABS: Appearance Urine Clear (Clear); Bacteria Urine Automated None Seen (None Seen); Bilirubin Urine Negative (Negative); Blood Urine 2+ (Negative); Cast Urine Automated 0-2 /lpf (0-2); Color Urine Yellow; Epithelial Cell Urine Auto 0-2 /hpf (0-2); Glucose Urine UA 3+ (Negative); Ketones Urine 2+ (Negative); Leukocyte Esterase Urine Negative (Negative); Nitrite Urine Negative (Negative); Protein Urine 2+ (Negative); RBC Urine Automated 0-2 /hpf (0-2); Specific Gravity Urine 1.025 (1.000-1.030); Urobilinogen Urine Negative (Negative); WBC Urine Automated 0-5 /hpf (0-5)
[2024-07-20 01:36] LABS: Magnesium 2.1 mg/dl (1.7-2.4); Phosphorus 3.6 mg/dl (2.5-4.9)
[2024-07-20] MEDS: TXA 10% Non-IV Routes 100 MG/ML VIAL NEB ONE (01:37)
[2024-07-20] MEDS ORDERED: STAT IV/IM STA ×2 (01:40→04:29)
[2024-07-20 01:41] LABS: Urine Chloride < 15 mmol/L; Urine Sodium 16 mmol/L
[2024-07-20] MEDS: SODIUM CHLORIDE 3 % 100 ML IV ONE ×2 (01:58→04:59)
[2024-07-20] MEDS: PANTOprazole 40 MG/10 ML SYR IV ONE (02:15)
[2024-07-20] MEDS ORDERED: GLUCAGON FOR INJ 1 MG VIAL SQ PRN (02:21)
[2024-07-20] MEDS ORDERED: ONDANSETRON INJ 2 MG/ML 2 ML VIAL IV PRN (02:21)
[2024-07-20] MEDS ORDERED: DEXTROSE 50% 50 ML SYRINGE IV PRN (02:21)
[2024-07-20] MEDS ORDERED: GLUCOSE 10 TAB/TUBE PO PRN (02:21)
[2024-07-20] MEDS ORDERED: GLUCOSE 40% GEL 15 GM TUBE PO PRN (02:21)
[2024-07-20] MEDS ORDERED: CARBOHYDRATES FOR HYPOGLYCEMIA PO PRN (02:21)
[2024-07-20] MEDS: SODIUM CHLORIDE 1 GM TABLET PO SCH (03:10)
[2024-07-20] MEDS: POTASSIUM CHLORIDE CRTAB 20 MEQ TABCR PO STA (03:10)
[2024-07-20 03:44] LABS: BUN Creatinine Ratio 27.5 (10-20); Calcium 8.2 mg/dl (8.6-10.3); Creatinine Clr Calc Pharmacy 95.4 ml/min; Potassium 4.1 mmol/L (3.5-5.1)
[2024-07-20 04:15] LABS: Basophils # (auto) 0.01 K/uL (0.00-0.20); Basophils % (auto) 0.3 %; Hematocrit (blood only) 33.6 % (42.0-52.0); Hemoglobin 11.7 g/dl (14.0-18.0); Immature Granulocytes # (auto) 0.02 K/uL (0.01-0.20); Immature Granulocytes % (auto) 0.6 %; Lymphocytes % (auto) 21.7 %; Mean Corpuscular Hemoglobin 27.7 pg (25.0-34.0); Mean Corpuscular Hgb Conc 34.8 g/dL (32.0-36.0); Mean Corpuscular Volume 79.6 fL (80.0-100.0); Mean Platelet Volume 10.7 fL (9.4-12.4); Monocytes # (auto) 0.35 K/uL (0.11-0.59); Monocytes % (auto) 10.8 %; Neutrophils # (auto) 2.15 K/uL (1.40-6.50); Neutrophils % (auto) 66.6 %; Platelet Count 57 K/uL (130-400); RBC Morphology Unremarkable; RDW Coefficient of Variation 14.3 % (11.5-14.5); RDW Standard Deviation 41.2 fL (36.4-46.3); Red Blood Count 4.22 M/uL (4.70-6.10); White Blood Count 3.23 K/ul (4.8-10.8)
[2024-07-20 04:52] LABS: Adenovirus F 40/41 PCR Not Detected (NotDetected); Astrovirus PCR Not Detected (NotDetected); Campylobacter PCR Not Detected (NotDetected); Cryptosporidium PCR Not Detected (NotDetected); Cyclospora cayetanensis PCR Not Detected (NotDetected); Entamoeba histolytica PCR Not Detected (NotDetected); Enteroaggregative E.coli(EAEC) Not Detected (NotDetected); Enteropathogenic E.coli (EPEC) Not Detected (NotDetected); Enterotoxigenic E.coli (ETEC) Not Detected (NotDetected); Giardia lamblia PCR Not Detected (NotDetected); Norovirus GI/GII PCR Not Detected (NotDetected); Plesiomonas shigelloides PCR Not Detected (NotDetected); Rotavirus A PCR Not Detected (NotDetected); Salmonella PCR Not Detected (NotDetected); Sapovirus PCR Not Detected (NotDetected); Shiga-like Toxin E.coli (STEC) Not Detected (NotDetected); Shigella/Enteroinvasive E.coli Not Detected (NotDetected); Vibrio cholerae PCR Not Detected (NotDetected); Vibrio species PCR Not Detected (NotDetected); Yersinia enterocolitica PCR Not Detected (NotDetected)
[2024-07-20 08:16] LABS: BUN Creatinine Ratio 27.8 (10-20); Calcium 8.4 mg/dl (8.6-10.3); Creatinine Clr Calc Pharmacy 96.5 ml/min; Potassium 4.3 mmol/L (3.5-5.1)
[2024-07-20 08:23] LABS: Hematocrit (blood only) 33.3 % (42.0-52.0); Hemoglobin 11.4 g/dl (14.0-18.0); Mean Corpuscular Hemoglobin 27.5 pg (25.0-34.0); Mean Corpuscular Hgb Conc 34.2 g/dL (32.0-36.0); Mean Corpuscular Volume 80.4 fL (80.0-100.0); Mean Platelet Volume 11.6 fL (9.4-12.4); Platelet Count 52 K/uL (130-400); RDW Coefficient of Variation 14.2 % (11.5-14.5); RDW Standard Deviation 41.1 fL (36.4-46.3); Red Blood Count 4.14 M/uL (4.70-6.10)
[2024-07-20 08:31] LABS: Basophils # (auto) 0.01 K/uL (0.00-0.20); Basophils % (auto) 0.4 %; Immature Granulocytes # (auto) 0.01 K/uL (0.01-0.20); Immature Granulocytes % (auto) 0.4 %; Lymphocytes # (auto) 0.69 K/uL (1.20-3.40); Lymphocytes % (auto) 24.6 %; Monocytes # (auto) 0.35 K/uL (0.11-0.59); Monocytes % (auto) 12.5 %; Neutrophils # (auto) 1.74 K/uL (1.40-6.50); Neutrophils % (auto) 62.1 %; Platelet Estimate Decreased (Normal); RBC Morphology Unremarkable
[2024-07-20] MEDS: INSULIN ASPART PER UNIT CHARGE SC SCH ×3 (09:08→17:33)
[2024-07-20] MEDS: PANTOprazole 40 MG/10 ML SYR IV SCH (09:48)
[2024-07-20] MEDS: lisinopril 20 MG TAB PO SCH (09:49)
[2024-07-20] MEDS: SODIUM CHLORIDE 0.65% NA SOLN 45 ML (OCEAN) STA (09:49)
[2024-07-20] MEDS: FENOFIBRATE NANOCRYSTALLIZED 145 MG TABLET PO SCH (09:49)
[2024-07-20] MEDS: ATORVASTATIN 20 MG TAB PO SCH (09:52)
[2024-07-20] MEDS: DEXTROSE 5% 500 ML IV SCH (09:57)
--- NOTE | 2024-07-20 10:07 | Gastrointestinal Consultation ---
Date of Consultation July 20, 2024 Assessment & Plan (1) Melena: Plan I suspect that his melena is secondary from post nasal blood given his issues with nosebleeds. Patient is also pancytopenic. - follow hgb/hct and transfuse as needed. - continue protonix 40mg IV bid. - will continue to monitor. no plan for EGD at this time. Supervising Physician Co-Signing Physician Notes Patient examining the emergency room. His nosebleed is stopped. He states the melena began after the nosebleed. He is influenza A positive. He has decreased platelets which potentially could be related to that. Being followed and worked up by the primary service. I would treat him with a PPI until it is clear his melena stopped to resolve. Will follow-up tomorrow. Doubt an acute GI bleed. History of Present Illness Reason for Consultation: Bev Clement [facility] Requesting Physician: billie Attending Physician: Tomasz Paniagua DO History of Present Illness Patient is a 59 year old male with past medical history of hyperlipidemia, DM, hypertension, rheumatoid arthritis. History today is obtained through patient and through his who helped with translation. He presented to the ED on 07/19/24 due to issues with nosebleeds for the past 3 days. He has had fatigue and a cough for the past 4 weeks and on evaluation had tested positive for Flu A. He also notes that stools have been dark and loose since nosebleeds started. no nausea, vomiting, abdominal pain. 07/19/24 wbc 2.8, hgb 11.4, hct 33.3, platelets 52. INR 0.9. Na 126, K 4.3, BUN 25, creatinine 0.9. LFTs wnl. Cortisol 27.97. Allergies Allergy/AdvReac Type Severity Reaction Status Date / Time No Known Allergies Allergy Unverified 05/28/24 09:38 Home Medications Medication Instructions Recorded Confirmed Type empagliflozin 25 mg tablet 25 mg PO DAILY #90 tabs 05/28/24 07/20/24 Rx fenofibrate nanocrystallized 145 145 mg PO DAILY #90 tabs 05/28/24 07/20/24 Rx mg tablet lisinopril 20 mg tablet 20 mg PO DAILY #90 tabs 05/28/24 07/20/24 Rx metformin 1,000 mg tablet 1,000 mg PO BID #180 tabs 05/28/24 07/20/24 Rx glipizide 10 mg tablet 10 mg PO BID #60 tabs 06/21/24 07/20/24 Rx atorvastatin 20 mg tablet 20 mg PO DAILY 07/20/24 07/20/24 History meloxicam 15 mg tablet 15 mg PO DAILY 07/20/24 07/20/24 History Patient History Medical History (Updated 07/20/24 @ 04:55 by Heriberto Brush MD) Anemia Hearing loss correction (current) use of systemic steroids Long-term use of immunosuppressant medication Mouth ulcers Oral thrush Positive purified protein derivative (PPD) skin test with negative chest x-ray Rectal bleeding Polyarthropathy or polyarthritis of multiple sites Surgical History H/O oral surgery Family History Mother Diabetes Father Diabetes Brother Diabetes Denies family history of Ovarian cancer Prostate cancer Myocardial infarction Breast cancer Colorectal cancer Social History Smoking Status: Former smoker Tobacco Type: Cigars Age Started Using Tobacco: 14; Age Quit Using Tobacco: 48; packs per day: 1; Second Hand Exposure: No; Do You Dip or Chew Tobacco: No; Hx Alcohol Use: No Hx Substance Use: No Preferred Language: Portuguese Communication Ability: Effective Visual Impairment: No Limitations Hearing Ability: Normal Digital Composer Required: No Beliefs That Will Affect Care: None marital status: Current Living Situation: Spouse current occupational status: employed 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 How many Children do You have: 2 Feels Safe at Home: Yes Safety Concerns: Feels Safe At This Time Childhood Exposure to Second-Hand Smoke: No Diet: regular caffeine: Yes during the past year weight has: remained stable Dental Care, Regularly: No Physical Activity Frequency: Does not Exercise Seatbelt Use: always Sunscreen Use: No Assistive Devices: None Review of Systems Review of Systems: All systems reviewed & are unremarkable except as noted in HPI & below Physical Exam Constitutional: WD/WN, vitals as above Respiratory: normal respiratory effort, lungs clear to auscultation Cardiovascular: Rate/Rhythm: regular rate and regular rhythm Gastrointestinal (Abdomen): normal bowel sounds, soft, nontender, no hepatosplenomegaly Psychiatric: Orientation: alert and oriented x 3 Results & Data Vital Signs (Past 12 Hours) Vital Signs Temp Pulse Pulse Resp BP BP Pulse Ox 07/20/24 10:00 98.2 F 87 19 158/78 H 97 07/20/24 07:20 89 18 119/63 98 07/20/24 06:57 88 07/20/24 04:42 99.0 F 07/20/24 04:29 78 24 125/80 95 07/20/24 03:30 76 26 H 142/79 H 96 07/20/24 03:00 77 22 123/69 98 07/20/24 02:30 80 26 H 151/80 H 98 07/20/24 02:26 07/20/24 01:30 158/85 H 07/20/24 01:00 84 24 134/69 97 07/20/24 00:00 88 26 H 150/77 H 97 07/19/24 23:40 96 07/19/24 23:24 87 07/19/24 22:58 94 H 20 132/77 98 07/19/24 22:44 97.9 F 97 H 16 134/79 94 Pulse Ox O2 Del Method O2 Del Method 07/20/24 10:00 Room Air 07/20/24 07:20 Room Air 07/20/24 06:57 07/20/24 04:42 07/20/24 04:29 07/20/24 03:30 07/20/24 03:00 07/20/24 02:30 07/20/24 02:26 98 Room Air 07/20/24 01:30 07/20/24 01:00 07/20/24 00:00 07/19/24 23:40 Room Air 07/19/24 23:24 07/19/24 22:58 Room Air 07/19/24 22:44 Room Air Coding Level of Care Code 03300 IN/OBS CONSULT LVL 4,60M Diagnoses Melena K92.1
[2024-07-20 12:22] LABS: BUN Creatinine Ratio 23.4 (10-20); Calcium 8.3 mg/dl (8.6-10.3); Creatinine Clr Calc Pharmacy 92.4 ml/min; Potassium 4.7 mmol/L (3.5-5.1)
--- NOTE | 2024-07-20 13:19 | Hospitalist Progress Note ---
Date of Service July 20, 2024 Assessment & Plan (1) Acute anterior epistaxis: (2) Pancytopenia: (3) Melena: (4) Influenza A: (5) Acute hyponatremia: (6) Diabetes mellitus: Plan Rogers Hernandez is a 59-year-old Palestinian-speaking male who presents to the emergency department with a past medical history of diabetes mellitus, dyslipidemia, GERD without esophagitis, hypertension, and rheumatoid arthritis due to a concern of prolonged epistaxis, fatigue, and cough. #Epistaxis #Melena #Pancytopenia - Epistaxis started (07/16) - Pancytopenia noted on CBC - Peripheral blood smear: - Grossly unremarkable - Reason for pancytopenia not revealed - Possibly due to infection with influenza - Consider consult to hematology if pancytopenia worsens - Ephedrine soaked cotton per nares; denied by patient - Bleeding resolved in PM - Consider rhino rocket if bleeding restarts and is acutely worse - Consider ENT consult if repeated epistaxis or unresolved epistaxis - Gastroenterology onboard - Continue pantoprazole 40 mg IV BID - Likely melena secondary to swallowing of blood from epistaxis #Hyponatremia #Influenza A 2009 Strain - Likely hypovolemic hyponatremia - GI distress for several days prior to presentation likely due to influenza A - Outside treatment time zone for Tamiflu; supportive care - Na 118 on admission - 500 mls of normal saline - 100 mls of hypertonic saline - Repeat BMP Na 126 (07/20; 07:32) - Ideally increase Na by 12 over 24 hours - Increased 8 points over 8 hours - 500 mls of D5W; Na 122 (07/20; 15:23) - Discontinue D5W if Na stable - Hyponatremia likely to self resolve; continue PO intake - Repeat BMP every 4 hours #Diabetes mellitus - Hold glipizide and metformin - Hold empagliflozin - Placed on Accu-Cheks with NovoLog SSI as noted #Chronic Conditions - Hyperlipidemia: continue atorvastatin and fenofibrate - Hypertension: lisinopril Admission and Anticipated Discharge Date Admission Date: July 20, 2024 Supervising Physician Co-Signing Physician Notes I personally examined the patient and verified all [place] points of history and exam, discussed case, and agree with decision making with Dr Smith and Ron Arevalo MS4 Nosebleed slowing down. Otherwise feeling okay. Vitals noted, in general he is awake and alert pleasant no distress. Left nostril with slow oozing bleedhe notes it is better than before. Breathing unlabored no accessory muscle use good effort. Skin without rashes pallor or icterus. Neuro without focal deficits. Influenza Aseems to have had a lot of GI symptomsleading to hyponatremic dehydrationprobably from GI losses/poor p.o. intakecorrected quite [id number] started to slow the ratecontinue to follow. In regards to the flu, fortunately seems fairly asymptomatic at this time outside of fevers that do not seem to be bothering him much. Pancytopeniaetiology not entirely clear. Peripheral smear reassuring. I wonder about viral induced marrow suppression. At the same time, obviously have to follow closely/follow to resolutionlow threshold to enlist hematology, but right now continue to follow closely. Nosebleedthrombocytopenia likely plays a role, at the same time, his p latelets are high enough that a transfusion would not really be warranted. Briefly thought we may need to formally pack or even enlist ENT, but the bleeding is appearing to be slowing. DVT prophylaxisSCDs Subjective Rogers was seen this morning at bedside with Dr. Smith. He endorsed having a bloody nose for the past 4 days (today included) and feeling weak/fatigue. He stated that he had no previous episodes of prolonged bleeding. Additionally, he said that he had normal bowel movements without abdominal pain, unexplained weight loss, night sweats, or previous episodes of bloody or tarry stools. Otherwise, he mentioned that he feels demonstrably better with respect to his fatigue/weakness and his nose bleed. At this time, he still having an actively bleeding nose. We discussed potential ways to decrease bleeding if it continues such as packing and potentially consulting our ENT colleagues. He was agreeable to this. Otherwise he had no further questions or concerns. This afternoon, Rogers was seen again to monitor his nose bleeding. He stated that it had stopped and he does not feel like it is going down the back of his throat. Review of Systems Review of Systems: Per HPI Physical Exam Constitutional: Lying comfortably in bed Appears distressed about nosebleed ENMT: Morning: left anterior nostril bleeding; right nostril demonstrably smaller opening - no active bleeding Afternoon: clotted blood on the anterior aspect of the nasal opening; no active bleeding appreciated in the anterior nostril Respiratory: Conversational without shortness of breath Respiratory rate and effort appropriate for situation No accessory respiratory muscle use Gastrointestinal (Abdomen): Non-tender to palpation No organomegaly appreciated, though limited due to body habitus Results & Data Results & Data Vital Signs (Past 12 Hours) Vital Signs Temp Pulse Pulse Resp BP BP Pulse Ox 07/20/24 11:00 37.5 C 90 18 153/67 H 95 07/20/24 10:00 36.8 C 87 19 158/78 H 97 07/20/24 07:20 89 18 119/63 98 07/20/24 06:57 88 07/20/24 04:42 37.2 C 07/20/24 04:29 78 24 125/80 95 07/20/24 03:30 76 26 H 142/79 H 96 07/20/24 03:00 77 22 123/69 98 07/20/24 02:30 80 26 H 151/80 H 98 07/20/24 02:26 07/20/24 01:30 158/85 H Pulse Ox O2 Del Method O2 Del Method 07/20/24 11:00 Room Air 07/20/24 10:00 Room Air 07/20/24 07:20 Room Air 07/20/24 06:57 07/20/24 04:42 07/20/24 04:29 07/20/24 03:30 07/20/24 03:00 07/20/24 02:30 07/20/24 02:26 98 Room Air 07/20/24 01:30
[2024-07-20] MEDS: Nursing to Pharmacy Communication SCH (15:44)
[2024-07-20 15:51] LABS: BUN Creatinine Ratio 20.2 (10-20); Calcium 8.6 mg/dl (8.6-10.3); Creatinine Clr Calc Pharmacy 87.7 ml/min; Potassium 4.3 mmol/L (3.5-5.1)
[2024-07-20] MEDS ORDERED: TRANEXAMIC ACID 100 MG/ML 10 ML VIAL IV ONE (16:17)
[2024-07-20] MEDS: TRANEXAMIC ACID IV ONE (17:46)
[2024-07-20] MEDS: SODIUM CHLORIDE 0.9% IV ONE (17:46)
--- NOTE | 2024-07-20 18:20 | Billing Data ---
Date of Service July 20, 2024 Coding Level of Care Code 56775 SUB INP/OBS CARE MIN
--- NOTE | 2024-07-20 18:26 | Electrocardiogram Report ---
Test Reason : Blood Pressure : */* mmHG Vent. Rate : 92 BPM Atrial Rate : 92 BPM P-R Int : 138 ms QRS Dur : 86 ms QT Int : 386 ms P-R-T Axes : 51 12 50 degrees QTcB Int : 477 ms Normal sinus rhythm Normal ECG No previous ECGs available Confirmed by Tc Orantes ([id number]) on 07/20/2024 6:26:28 PM Referred By: REFERRED SELF Confirmed By: Tc Orantes
[2024-07-20 20:05] LABS: BUN Creatinine Ratio 18.7 (10-20); Creatinine Clr Calc Pharmacy 95.4 ml/min; Potassium 4.2 mmol/L (3.5-5.1)
[2024-07-21 06:36] LABS: Hematocrit (blood only) 30.4 % (42.0-52.0); Hemoglobin 10.5 g/dl (14.0-18.0); Mean Corpuscular Hemoglobin 27.7 pg (25.0-34.0); Mean Corpuscular Hgb Conc 34.5 g/dL (32.0-36.0); Mean Corpuscular Volume 80.2 fL (80.0-100.0); Mean Platelet Volume 12.1 fL (9.4-12.4); Platelet Count 52 K/uL (130-400); RDW Coefficient of Variation 14.1 % (11.5-14.5); RDW Standard Deviation 41.6 fL (36.4-46.3); Red Blood Count 3.79 M/uL (4.70-6.10); White Blood Count 3.52 K/ul (4.8-10.8)
[2024-07-21 06:37] LABS: BUN Creatinine Ratio 15.3 (10-20); Calcium 8.3 mg/dl (8.6-10.3); Creatinine Clr Calc Pharmacy 102.2 ml/min
--- NOTE | 2024-07-21 07:14 | Hospitalist Progress Note ---
Date of Service July 21, 2024 Assessment & Plan (1) Acute anterior epistaxis: (2) Pancytopenia: (3) Melena: (4) Influenza A: (5) Acute hyponatremia: (6) Diabetes mellitus: Plan Rogers Hernandez is a 59-year-old [place]-speaking male who presents to the emergency department with a past medical history of diabetes mellitus, dyslipidemia, GERD without esophagitis, hypertension, and rheumatoid arthritis due to a concern of prolonged epistaxis, fatigue, and cough. #Epistaxis - resolved #Melena - improved #Pancytopenia - Epistaxis started (07/16), last episode 07/20 - Pancytopenia ongoing but stable Peripheral blood smear:Grossly unremarkable Reason for pancytopenia not revealed Possibly due to infection with influenza Consider consult to hematology if pancytopenia worsens - If bleeding returns/uncontrolled ashlee consider rhino rocket and/or ENT consultation - Gastroenterology following Continue pantoprazole 40 mg IV BID Likely melena secondary to swallowing of blood from epistaxis Diarrhea ongoing, melena improved #Hyponatremia #Influenza A 2009 Strain - Likely hypovolemic hyponatremia a/w infection/GI distress - Na 118, now 119 Tendency to overcorrect rapidly Hyponatremia likely to self resolve; continue PO intake 07/21 Required 500 cc bolus Plasmalyte for dropping Na - Repeat BMP every 4 hours #Diabetes mellitus - Hold glipizide and metformin - Hold empagliflozin - Placed on Accu-Cheks with NovoLog SSI as noted #Chronic Conditions - Hyperlipidemia: continue atorvastatin and fenofibrate - Hypertension: lisinopril Admission and Anticipated Discharge Date Admission Date: July 20, 2024 Supervising Physician Co-Signing Physician Notes I personally examined the patient and verified all [place] points of history and exam, discussed case, and agree with decision making with Dr Ijeoma Huntered improved. Still with diarrheastill black. Agree with GI its almost certainly due to swallowed blood given his nosebleed. He notes he still feels weak. Mouth and throat are sore and dry. Is starting to take p.o. better. Vitals noted, in general he is fatigued but otherwise in no distress. His lips are dry his mucous membranes are dry. Breathing unlabored no accessory muscle use good effort. Skin without rashes pallor or icterus. He is sipping on chicken broth. Influenza Aseems to have had a lot of GI symptomsleading to hyponatremic dehydrationprobably from GI losses/poor p.o. intake Has been very brittle with rate of correction in both directionsyesterday was correcting too quickly up, so gave a small amount of D5W which then led to a surprising reversal rather than simply stalling out of correctiongiven that he looked dry, was given more isotonic fluids today, sodium trending upwardsI suspect as his diarrhea slows and his p.o. intake improves, his situation will become less brittle and he will likely self-correct. Continue to follow closely to avoid allowing him to overcorrect. Pancytopeniaetiology not entirely clear. Peripheral smear reassuring. I wonder about viral induced marrow suppression. At the same time, obviously have to follow closely/follow to resolutionlow threshold to enlist hematology, but right now continue to follow closely. Labs overall stable today Nosebleedthrombocytopenia likely plays a role, at the same time, his platelets are high enough that a transfusion would not really be warranted. fortunately nosebleed stopped DVT prophylaxisSCDs Subjective No acute events overnight. Patient has not had epistaxis since yesterday. Concerned about mouth dryness. Still having intermittent diarrhea w/o abdominal pain. Review of Systems Review of Systems: Per HPI Physical Exam Physical Exam: Gen - AO x 3, NAD, nontoxic HEENT - No epistaxis, dried blood remaining in left nare, dry mucous membranes Heart - normal S1 and S2. No murmurs, rubs or gallops. Lungs - clear bilaterally, no respiratory distress, no accessory muscle use. Abdomen - normal bowel sounds and soft. No ascites noted. Non-tender. Extremities - 2+ peripheral pulses, no edema Rheumatologic - normal range of motion. Psychiatric - normal affect. Results & Data Results & Data Vital Signs (Past 12 Hours) Vital Signs Temp Pulse Resp BP Pulse Ox O2 Del Method O2 Del Method 07/21/24 02:21 Room Air 07/20/24 20:48 37.2 C 98 H 22 156/70 H 94 Room Air 07/20/24 19:38 Room Air Resident Activity Tracking Resident Involvement: Resident Care Provided Care Provided: Adult Hospital Medicine
[2024-07-21 07:33] LABS: Dohle Bodies 1+; Immature Granulocytes # (auto) 0.02 K/uL (0.01-0.20); Immature Granulocytes % (auto) 0.6 %; Lymphocytes # (auto) 1.02 K/uL (1.20-3.40); Monocytes # (auto) 0.42 K/uL (0.11-0.59); Monocytes % (auto) 11.9 %; Neutrophils # (auto) 2.06 K/uL (1.40-6.50); Neutrophils % (auto) 58.5 %
[2024-07-21] MEDS: SODIUM CHLORIDE 1 GM TABLET PO ONE (10:25)
[2024-07-21 13:09] LABS: Anion Gap 7 (3-11); BUN Creatinine Ratio 14.6 (10-20); Blood Urea Nitrogen 12 mg/dl (6-23); Calcium 8.1 mg/dl (8.6-10.3); Carbon Dioxide 20 mmol/L (21-32); Chloride 92 mmol/L (98-107); Creatinine Clr Calc Pharmacy 105.9 ml/min; Glucose 226 mg/dl (70-99(Fasting)); Sodium 119 mmol/L (136-145)
[2024-07-21] MEDS: PLASMA-LYTE A 500 ML IV ONE (13:32)
[2024-07-21] MEDS: SODIUM CHLORIDE 1 GM TABLET PO SCH (13:36)
--- NOTE | 2024-07-21 13:44 | Gastroenterology Progress Note ---
Date of Service July 21, 2024 Assessment & Plan (1) Melena: Plan: [place] to be related to swallowing of significant nosebleed would treat with PPI for the next month. He does get indigestion also so this may be helpful. No plan for endoscopic intervention or evaluation at this time. Admission and Anticipated Discharge Date Admission Date: July 20, 2024 Subjective Patient with melena. [place] to be related to epistaxis. Patient has influenza. States stools and bowel frequency significantly decreased stool still dark which I believe is related to old blood. Continue PPI and observe for now. Review of Systems Review of Systems: Currently [place] heartburn indigestion or dyspepsia. No abdominal pain Physical Exam Physical Exam: Benign abdomen Results & Data Results & Data Vital Signs (Past 12 Hours) Vital Signs Temp Pulse Resp BP Pulse Ox O2 Del Method O2 Del Method 07/21/24 07:40 Room Air 07/21/24 07:19 37.0 C 82 18 127/68 95 Room Air 07/21/24 02:21 Room Air Laboratory Results Hemoglobin stable PG Care Time/CCT Total # of Minutes Spent Total Time Spent with Patient: Total time spent is greater than 50% in coordination of care (as documented) at patient's floor/unit and/or counseling patient: Coding Level of Care Code 34814 SUB INP/OBS CARE 07/28MIN Diagnoses Melena K92.1
[2024-07-21 16:28] LABS: BUN Creatinine Ratio 14.7 (10-20); Creatinine Clr Calc Pharmacy 127.7 ml/min; Potassium 3.7 mmol/L (3.5-5.1)
--- NOTE | 2024-07-21 17:39 | Billing Data ---
Date of Service July 21, 2024 Coding Level of Care Code 48629 SUB INP/OBS CARE MIN
[2024-07-21 21:30] LABS: Calcium 7.8 mg/dl (8.6-10.3); Creatinine Clr Calc Pharmacy 104.6 ml/min; Potassium 3.9 mmol/L (3.5-5.1)
[2024-07-22 06:20] LABS: Hematocrit (blood only) 28.6 % (42.0-52.0); Hemoglobin 9.9 g/dl (14.0-18.0); Mean Corpuscular Hemoglobin 27.9 pg (25.0-34.0); Mean Corpuscular Hgb Conc 34.6 g/dL (32.0-36.0); Mean Corpuscular Volume 80.6 fL (80.0-100.0); Mean Platelet Volume 11.8 fL (9.4-12.4); Platelet Count 56 K/uL (130-400); RDW Coefficient of Variation 14.1 % (11.5-14.5); RDW Standard Deviation 41.7 fL (36.4-46.3); Red Blood Count 3.55 M/uL (4.70-6.10); White Blood Count 3.01 K/ul (4.8-10.8)
--- NOTE | 2024-07-22 06:37 | Hospitalist Progress Note ---
Date of Service July 22, 2024 Assessment & Plan (1) Acute anterior epistaxis: (2) Pancytopenia: (3) Melena: (4) Influenza A: (5) Acute hyponatremia: (6) Diabetes mellitus: Plan Rogers Hernandez is a 59-year-old [place]-speaking male who presents to the emergency department with a past medical history of diabetes mellitus, dyslipidemia, GERD without esophagitis, hypertension, and rheumatoid arthritis due to a concern of prolonged epistaxis, fatigue, and cough. #Epistaxis - resolved #Melena - resolved #Pancytopenia - stable - Epistaxis started (07/16), last episode 07/20 - Pancytopenia ongoing but stable Peripheral blood smear:Grossly unremarkable Reason for pancytopenia not revealed Possibly due to infection with influenza Consider consult to hematology if pancytopenia worsens - If bleeding returns/uncontrolled ashlee consider rhino rocket and/or ENT consultation - Gastroenterology following Continue pantoprazole 40 mg IV BID Likely melena secondary to swallowing of blood from epistaxis Diarrhea ongoing, melena improved #Hyponatremia #Influenza A 2009 Strain - Hemodynamically stable on room air - Likely hypovolemic hyponatremia a/w infection/GI distress - Na improved to 125, continue Plasmalyte @ 80 ml/hr Tendency to overcorrect rapidly Continue PO intake - Repeat BMP BID #Diabetes mellitus - Hold glipizide and metformin - Hold empagliflozin - Placed on Accu-Cheks with NovoLog SSI as noted #Chronic Conditions - Hyperlipidemia: continue atorvastatin and fenofibrate - Hypertension: lisinopril Dispo: continue to follow Na levels overnight, will likely DC tomorrow if ongoing improvement Admission and Anticipated Discharge Date Admission Date: July 20, 2024 Supervising Physician Co-Signing Physician Notes I personally examined the patient and verified all [place] points of history and exam, discussed case, and agree with decision making with Dr Raphael No more nosebleeds. Diarrhea stopped. Getting around in the room under his own power. Eating and drinking is improving but still not great. Vitals noted, in general he is fatigued but otherwise in no distress. His lips are dry his mucous membranes are less dry. Breathing unlabored no accessory muscle use good effort. Skin without rashes pallor or icterus. Influenza Aseems to have had a lot of GI symptomsleading to hyponatremic dehydrationprobably from GI losses/poor p.o. intake Has been very brittle with rate of correction in both directionsday 1 was correcting too quickly up, so gave a small amount of D5W which then led to a surprising reversal rather than simply stalling out of correctiongiven that he looked dry. now that diarrhea has stopped and PO intake improving i suspect that he will be more "linear" to correct - since dry still -> IV fluids. follow closely - Na starting to correct more appropriately though. Pancytopeniaetiology not entirely clear. Peripheral smear reassuring. I wonder about viral induced marrow suppression. At the same time, obviously have to follow closely/follow to resolutionlow threshold to enlist hematology, but right now continue to follow closely. Labs overall stable today. will need out patient follow up in this regard Nosebleedthrombocytopenia likely plays a role, at the same time, his platelets are high enough that a transfusion would not really be warranted. fortunately nosebleed stopped and has not recurred DVT prophylaxisSCDs Subjective No acute events overnight. Epistaxis resolved. Ongoing cough and fatigue. No STEVEN, LH, or dizziness. No CP or dyspnea. Review of Systems Review of Systems: Per HPI Physical Exam Physical Exam: Gen - AO x 3, NAD, nontoxic HEENT - No epistaxis, patent nares, dry mucous membranes Heart - normal S1 and S2. No murmurs, rubs or gallops. Lungs - scattered crackles (improved w/ coughing), non-labored, no accessory muscle use Abdomen - Soft, non-distended, active bowel sounds Extremities - 2+ peripheral pulses, no edema Rheumatologic - normal range of motion. Psychiatric - normal affect. Results & Data Results & Data Vital Signs (Past 12 Hours) Vital Signs Temp Pulse Resp BP Pulse Ox O2 Del Method 07/21/24 20:50 37.1 C 83 22 149/75 H 97 Room Air Resident Activity Tracking Resident Involvement: Resident Care Provided Care Provided: Adult Hospital Medicine
[2024-07-22 08:30] LABS: BUN Creatinine Ratio 13.6 (10-20); Calcium 8.1 mg/dl (8.6-10.3); Creatinine Clr Calc Pharmacy 131.6 ml/min; Potassium 3.9 mmol/L (3.5-5.1)
[2024-07-22] MEDS: PLASMA-LYTE A 1,000 ML IV SCH (11:02)
[2024-07-22 13:56] LABS: BUN Creatinine Ratio 9.8 (10-20); Calcium 8.3 mg/dl (8.6-10.3); Creatinine Clr Calc Pharmacy 94.4 ml/min
--- NOTE | 2024-07-22 16:31 | Billing Data ---
Date of Service July 22, 2024 Coding Level of Care Code 87829 SUB INP/OBS CARE MIN
[2024-07-22 18:41] LABS: BUN Creatinine Ratio 11.4 (10-20); Calcium 7.9 mg/dl (8.6-10.3); Creatinine Clr Calc Pharmacy 124.1 ml/min; Potassium 3.8 mmol/L (3.5-5.1)
[2024-07-22 22:55] LABS: BUN Creatinine Ratio 8.6 (10-20); Calcium 7.7 mg/dl (8.6-10.3); Creatinine Clr Calc Pharmacy 124.1 ml/min; Potassium 3.7 mmol/L (3.5-5.1)
[2024-07-22] MEDS: ACETAMINOPHEN 325 MG TAB PO PRN (23:06)
[2024-07-23 02:49] LABS: BUN Creatinine Ratio 8.7 (10-20); Calcium 8.1 mg/dl (8.6-10.3); Creatinine Clr Calc Pharmacy 125.9 ml/min; Potassium 3.7 mmol/L (3.5-5.1)
[2024-07-23 06:40] LABS: Hematocrit (blood only) 27.2 % (42.0-52.0); Hemoglobin 9.4 g/dl (14.0-18.0); Mean Corpuscular Hgb Conc 34.6 g/dL (32.0-36.0); Platelet Count 90 K/uL (130-400); RDW Standard Deviation 41.4 fL (36.4-46.3); Red Blood Count 3.36 M/uL (4.70-6.10); White Blood Count 2.69 K/ul (4.8-10.8)
[2024-07-23 06:46] LABS: Basophils # (auto) 0.01 K/uL (0.00-0.20); Basophils % (auto) 0.4 %; Immature Granulocytes # (auto) 0.02 K/uL (0.01-0.20); Immature Granulocytes % (auto) 0.7 %; Lymphocytes # (auto) 0.73 K/uL (1.20-3.40); Lymphocytes % (auto) 27.1 %; Monocytes # (auto) 0.38 K/uL (0.11-0.59); Monocytes % (auto) 14.1 %; Neutrophils # (auto) 1.55 K/uL (1.40-6.50); Neutrophils % (auto) 57.7 %; RBC Morphology Unremarkable
--- NOTE | 2024-07-23 07:03 | Hospitalist Progress Note ---
Date of Service July 23, 2024 Assessment & Plan (1) Acute anterior epistaxis: (2) Pancytopenia: (3) Melena: (4) Influenza A: (5) Acute hyponatremia: (6) Diabetes mellitus: Plan Rogers Hernandez is a 59-year-old [place]-speaking male who presents to the emergency department with a past medical history of diabetes mellitus, dyslipidemia, GERD without esophagitis, hypertension, and rheumatoid arthritis due to a concern of prolonged epistaxis, fatigue, and cough. #Epistaxis - resolved #Melena - resolved #Pancytopenia - stable - Epistaxis started (07/16), last episode 07/20 - Pancytopenia ongoing but stable Peripheral blood smear:Grossly unremarkable Reason for pancytopenia not revealed, ?viral suppression d/t influenza Hematology consult placed, appreciate recs - If bleeding returns/uncontrolled ashlee consider rhino rocket and/or ENT consultation - Gastroenterology following Continue pantoprazole, switch to PO 40mg daily Likely melena secondary to swallowing of blood from epistaxis Diarrhea resolved, melena improved #Hyponatremia #Influenza A 2009 Strain - Hemodynamically stable on room air - Likely hypovolemic hyponatremia a/w infection/GI distress - Most recent sodium 126, minimal change in past 24 hours - will switch Plasmalyte to NSS 80mL/hour Continue salt tabs - BMP Q4H #Diabetes mellitus - Hold glipizide and metformin - Hold empagliflozin - Placed on Accu-Cheks with NovoLog SSI as noted #Chronic Conditions - Hyperlipidemia: continue atorvastatin and fenofibrate - Hypertension: lisinopril Dispo: continue to follow Na levels overnight, hopefully DC tomorrow if ongoing improvement VTE ppx: SCDs, chemical ppx deferred due to relative thrombocytopenia and recent epistaxis Admission and Anticipated Discharge Date Admission Date: July 20, 2024 Supervising Physician Co-Signing Physician Notes Attending attestation Pt seen and examined in concert with Dr. Boateng. In agreement with the documented findings as noted in the resident documentation with any exceptions or additions as noted here. Reports interval resolution of diarrhea without BM today, no further epistaxis and no previous episodes reported. V/S as noted. On examination, S1/S2 nl RRR no MCG. CTAB. Abd NT/ND BS+ve Pancytopenia - continue to trend CBC daily as CBC and hgb downtrend while PLT has increased - hematology consult Hyponatremia - gradually improving with rehydration with plateau at 127 despite adequate POI and IV therapy and diminished diarrhea. Agree w/ transition to NSS and monitor. Else see resident documentation as noted. Subjective No acute events overnight. Epistaxis was spontaneous, denies h/o nosebleeds Ongoing fatigue. No STEVEN, LH, or dizziness. No CP or dyspnea. No further diarrhea past couple days. Denies h/o abnormal blood counts, denies recent weight loss, night sweats etc. Review of Systems Review of Systems: Per HPI Physical Exam Physical Exam: Constitutional: no acute distress HEENT: NCAT, no conjunctival injection CV: extremities well-perfused, no LE edema Resp: no increased work of breathing GI: nondistended MSK: no gross deformities Skin: warm, dry, no rash appreciated Neuro: alert, oriented, no focal neurologic deficit appreciated Results & Data Results & Data Vital Signs (Past 12 Hours) Vital Signs Temp Pulse Resp BP Pulse Ox O2 Del Method 07/22/24 19:25 37.2 C 89 18 172/79 H 96 Room Air Resident Activity Tracking Resident Involvement: Resident Care Provided Care Provided: Adult Hospital Medicine
[2024-07-23 09:28] LABS: BUN Creatinine Ratio 7.6 (10-20); Calcium 8.4 mg/dl (8.6-10.3); Creatinine Clr Calc Pharmacy 109.9 ml/min
--- NOTE | 2024-07-23 09:36 | Gastroenterology Progress Note ---
Date of Service July 23, 2024 Assessment & Plan (1) Acute anterior epistaxis: Plan: 59 year old male w/ history of hyperlipidemia, DM, hypertension, RA and others below admitted w/ influenza A and epistaxis - GI was asked to evaluate given report of black stools. Suspected this was related to the large amount of swallowed blood which occurred during epistaxis. He denies further nose bleeds, stools are now brown and he denies any gastrointestinal concerns. Convert IV PPI over to PO PPI May use Pantoprazole 40 mg once daily for 1 month Continue supportive measures ENT evaluation for recurrent epistaxis encouraged Follow up with GI as an outpatient Recall GI as needed. I spent a total of 35 minutes on the date of service in review of patient's record, and previously obtained information in person and appropriate medical visit, discussion and education of plan, with patient and/or caregiver, placing orders for tests/referral/procedures as medically necessary and documentation of pertinent clinical information in patient's medical records for their visit today. Admission and Anticipated Discharge Date Admission Date: July 20, 2024 Supervising Physician Co-Signing Physician Notes Melena related to ingested blood. PPI for at least a month. GI signed off reconsult as needed Subjective Pt was seen and evaluated, chart reviewed. Family at bedside. Denies abd pain. No further nose bleeds. Suggests stools are no longer black in color. Denies BRB. HGB 9.4 Review of Systems Review of Systems: All other findings negative except as noted in HPI. Physical Exam Constitutional: WD/WN, vitals as above Respiratory: normal respiratory effort Cardiovascular: Rate/Rhythm: regular rate Gastrointestinal (Abdomen): normal bowel sounds, soft, nontender, no hepatosplenomegaly Skin: no rashes, warm and dry Results & Data Results & Data Vital Signs (Past 12 Hours) Vital Signs Temp Pulse Resp BP Pulse Ox O2 Del Method 07/23/24 07:05 98.4 F 78 18 161/75 H 97 Room Air PG Care Time/CCT Total # of Minutes Spent Total Time Spent with Patient: Total time spent is greater than 50% in coordination of care (as documented) at patient's floor/unit and/or counseling patient: Coding Level of Care Code 02115 SUB INP/OBS CARE 2/35MIN Diagnoses Acute anterior epistaxis R04.0
[2024-07-23 13:03] LABS: BUN Creatinine Ratio 6.4 (10-20); Calcium 8.2 mg/dl (8.6-10.3); Creatinine Clr Calc Pharmacy 111.4 ml/min
[2024-07-23] MEDS: SODIUM CHLORIDE 0.9% 1,000 ML IV SCH (13:22)
[2024-07-23 15:40] LABS: BUN Creatinine Ratio 7.4 (10-20); Calcium 8.2 mg/dl (8.6-10.3); Creatinine Clr Calc Pharmacy 127.7 ml/min; Potassium 3.9 mmol/L (3.5-5.1)
[2024-07-23 19:43] LABS: Calcium 7.8 mg/dl (8.6-10.3); Potassium 3.8 mmol/L (3.5-5.1)
[2024-07-23 20:04] VITALS: O2SAT 97
[2024-07-23] MEDS: BENZONATATE 100 MG CAPSULE PO PRN (21:42)
[2024-07-23 23:19] LABS: BUN Creatinine Ratio 4.8 (10-20); Calcium 8.1 mg/dl (8.6-10.3); Creatinine Clr Calc Pharmacy 104.6 ml/min; Potassium 3.6 mmol/L (3.5-5.1)
[2024-07-24 06:58] VITALS: BP 156/88; PULSE 83; RESP 16; TEMP 98.2
--- NOTE | 2024-07-24 07:11 | Hospitalist Progress Note ---
Date of Service July 24, 2024 Assessment & Plan (1) Acute anterior epistaxis: (2) Pancytopenia: (3) Melena: (4) Influenza A: (5) Acute hyponatremia: (6) Diabetes mellitus: Plan Rogers Hernandez is a 59-year-old [place]-speaking male who presents to the emergency department with a past medical history of diabetes mellitus, dyslipidemia, GERD without esophagitis, hypertension, and rheumatoid arthritis due to a concern of prolonged epistaxis, fatigue, and cough. #Epistaxis - resolved #Melena - resolved #Pancytopenia - stable - Epistaxis started (07/16), last episode 07/20 - Pancytopenia ongoing but stable Peripheral blood smear:Grossly unremarkable Reason for pancytopenia not revealed, ?viral suppression d/t influenza Hematology consult placed, appreciate recs - If bleeding returns/uncontrolled ashlee consider rhino rocket and/or ENT consultation - Gastroenterology following Continue pantoprazole, switch to PO 40mg daily Likely melena secondary to swallowing of blood from epistaxis Diarrhea resolved, melena improved #Hyponatremia #Influenza A 2009 Strain - Hemodynamically stable on room air - Likely hypovolemic hyponatremia a/w infection/GI distress - Most recent sodium 126, minimal change in past 24 hours - will switch Plasmalyte to NSS 80mL/hour Continue salt tabs - BMP Q4H #Diabetes mellitus - Hold glipizide and metformin - Hold empagliflozin - Placed on Accu-Cheks with NovoLog SSI as noted #Chronic Conditions - Hyperlipidemia: continue atorvastatin and fenofibrate - Hypertension: lisinopril Dispo: continue to follow Na levels overnight, hopefully DC tomorrow if ongoing improvement VTE ppx: SCDs, chemical ppx deferred due to relative thrombocytopenia and recent epistaxis Admission and Anticipated Discharge Date Admission Date: July 20, 2024 Subjective No acute events overnight. Epistaxis was spontaneous, denies h/o nosebleeds Ongoing fatigue. No STEVEN, LH, or dizziness. No CP or dyspnea. No further diarrhea past couple days. Denies h/o abnormal blood counts, denies recent weight loss, night sweats etc. Review of Systems Review of Systems: Per HPI Physical Exam Physical Exam: Constitutional: no acute distress HEENT: NCAT, no conjunctival injection CV: extremities well-perfused, no LE edema Resp: no increased work of breathing GI: nondistended MSK: no gross deformities Skin: warm, dry, no rash appreciated Neuro: alert, oriented, no focal neurologic deficit appreciated Results & Data Results & Data Vital Signs (Past 12 Hours) Vital Signs Temp Pulse Resp BP Pulse Ox O2 Del Method 07/24/24 06:57 36.8 C 83 16 156/88 H 97 Room Air 07/23/24 21:40 Room Air 07/23/24 20:39 160/82 H 07/23/24 20:03 36.6 C 79 18 178/79 H 97 Room Air
[2024-07-24 07:17] LABS: Hematocrit (blood only) 25.9 % (42.0-52.0); Hemoglobin 8.8 g/dl (14.0-18.0); Mean Corpuscular Hemoglobin 27.6 pg (25.0-34.0); Mean Corpuscular Volume 81.2 fL (80.0-100.0); Mean Platelet Volume 10.4 fL (9.4-12.4); Platelet Count 138 K/uL (130-400); RDW Coefficient of Variation 14.2 % (11.5-14.5); RDW Standard Deviation 42.1 fL (36.4-46.3); Red Blood Count 3.19 M/uL (4.70-6.10); White Blood Count 2.42 K/ul (4.8-10.8)
[2024-07-24 08:00] LABS: BUN Creatinine Ratio 4.5 (10-20); Calcium 8.2 mg/dl (8.6-10.3); Creatinine Clr Calc Pharmacy 129.6 ml/min
[2024-07-24 08:25] LABS: Basophils # (auto) 0.01 K/uL (0.00-0.20); Basophils % (auto) 0.4 %; Eosinophils # (auto) 0.01 K/uL (0.00-0.50); Eosinophils % (auto) 0.4 %; Immature Granulocytes # (auto) 0.02 K/uL (0.01-0.20); Immature Granulocytes % (auto) 0.8 %; Lymphocytes # (auto) 0.69 K/uL (1.20-3.40); Lymphocytes % (auto) 28.5 %; Monocytes # (auto) 0.44 K/uL (0.11-0.59); Monocytes % (auto) 18.2 %; Neutrophils # (auto) 1.25 K/uL (1.40-6.50); Neutrophils % (auto) 51.7 %
[2024-07-24] MEDS: PANTOprazole 40 MG TAB PO SCH (08:33)
--- NOTE | 2024-07-24 11:28 | Discharge Summary ---
Date of Service July 24, 2024 Admission HPI Per Admitting Provider Patient is a 59-year-old male with past medical history of hyperlipidemia, DM, hypertension, rheumatoid arthritis. He presented to ED today due to nosebleed x 3 days. He is being admitted for hyponatremia with a sodium of 118 along with GI bleed workup due to melena. Patient seen at bedside. 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 He endorses fatigue, dizziness, cough, diarrhea since Tuesday. He stated that the diarrhea is loose and watery; he also endorses melena. He stated he has roughly 1-2 episodes of diarrhea a day since Tuesday. He has never had a colonoscopy before. He did state he had antibiotics roughly 3 months ago for a tooth infection. He also endorses occasional fever and dyspnea. Patient denies easily bruisability, sputum production, chest pain, abdominal pain, nausea, vomiting. Does not use nicotine products or drink alcohol regularly. He denies past history of cancer or previous VTE. He did not take his home medications this evening. He wishes to be DNR/DNI. Admission Exam Per Admitting Provider The patient is awake, alert and oriented 3, well developed and well nourished, normocephalic and atraumatic, in no acute distress. Non-toxic appearing. HEENT- EOMI, mucous membranes moist. Hearing grossly intact. Nose bleeding on exam. Heart-normal S1 and S2. No murmurs, rubs or gallops. Lungs-clear bilaterally, no respiratory distress, no accessory muscle use. Abdomen-normal bowel sounds and soft. No ascites noted. Non-tender. Extremities- no clubbing, cyanosis, or edema. Rheumatologic-normal range of motion. Psychiatric-normal affect. Principal Diagnosis Epistaxis with secondary melena and pancytopenia Discharge Exam Sitting comfortably in bed In no apparent distress Respiratory Lungs were clear to asculatation in the upper/middle vargas Bibasilar crackles appreciated Respiratory rate and effort appropriate No accessory respiratory muscle use Conversational without shortness of breath Cardiovascular Regular rate and rhythm S1 and S2 appreciated No rubs or gallops noted Gastrointestinal (Abdomen) Normoactive bowel sounds No organomegaly noted, though exam limited due to body habitus No tenderness to palpation Discharge Data Allergies Allergy/AdvReac Type Severity Reaction Status Date / Time No Known Allergies Allergy Unverified 05/28/24 09:38 Consultations 07/20/24 00:46 ED Decision to Admit Stat 07/20/24 02:21 Consult Gastroenterology Routine 07/20/24 08:56 Consult Otolaryngology (Head and Neck) Routine Hospital Course (1) Acute anterior epistaxis: (2) Pancytopenia: (3) Melena: (4) Influenza A: (5) Acute hyponatremia: (6) Diabetes mellitus: Baldomero Hernandez is a 59-year-old Welsh-speaking male who presents to the emergency department with a past medical history of diabetes mellitus, dyslipidemia, GERD without esophagitis, hypertension, and rheumatoid arthritis due to a concern of prolonged epistaxis, fatigue, and cough. #Epistaxis - resolved #Melena - resolved #Pancytopenia - stable - Epistaxis started (07/16); last episode 07/20 - Pancytopenia ongoing but stable - Peripheral blood smear: - Grossly unremarkable - Reason for pancytopenia not revealed - Possibly due to infection with influenza with bone marrow suppression - Repeat CBC with differential 07/27 outpatient; follow-up with Dr. Basurto within a week of discharge - Consider hematology referral if pancytopenia unresolved - Gastroenterology onboard - Likely melena secondary to swallowing of blood from epistaxis - Discontinued pantoprazole 40 mg IV BID on discharge #Hyponatremia #Influenza A 2009 Strain - Likely hypovolemic hyponatremia - GI distress for several days prior to presentation likely due to influenza A - Outside treatment time zone for Tamiflu; supportive care - Na 118 on admission - Hemodynamically stable on room air - Most recent sodium 131 - Discharged on normal diet and outpatient BMP for 07/27 #Diabetes mellitus - Held glipizide, metformin, and empagliflozin during hospital course - Continue home diabetes management on discharge #Chronic Conditions - Hyperlipidemia: continue atorvastatin and fenofibrate - Hypertension: lisinopril Dispo: Home Total Time Total Time Spent Total Time Spent (In Minutes): >60 minutes Discharge Plan Discharge Items Patient Disposition: Home - Self-Care Reason For Visit: HYPONATREMIA, MELENA, THROMBOCYTOPENIA Discharge Diagnosis: hyponatremia Activity: Resume your previous activity Non-emergency contact: Primary Care Provider Call non-emergency contact if: you have any medication questions and your symptoms worsen Follow-up/Referrals: Fausto Basurto, DO [Primary Care Provider] - 07/27/24 9:20 am Diet: Carb Consistent or DM2 Ambulatory Orders: Basic Metabolic Panel (Routine) Timeframe: 2 Days Location: Determined by Patient Ordered By: Travis Boateng Complete Blood Count with Diff (Timed) Timeframe: 2 Days Location: Determined by Patient Ordered By: Travis Boateng Addtl Attending Provider Instructions: You were admitted to the hospital primarily due to low sodium levels in your blood. These have largely corrected during your hospital stay, but you will need to have your labs repeated in the outpatient setting 2 days after discharge. Additionally, your blood counts were found to be low but are also improving. If these do not continue to increase, your doctor may recommend that you see a dairy chemist (blood doctor). We would like you to see your primary care doctor, Dr. Basurto, before the end of this week. A discharge summary will be sent to your primary care physician to ensure continuity of care. Please bring this discharge summary with you to your next office appointment so that your provider can review it at that time. Medications: Your medication list has been reviewed and reconciled upon discharge to ensure accuracy and continuity of care. An updated list of all your medications is included with your hospital discharge paperwork. Please review this list closely and make note of any changes to your medications. Follow up appointments: - Make a follow up appointment with your PCP before the end of this week. It is very important that you follow up with them shortly after discharge from the hospital. - Keep all of your follow up appointments as already scheduled. If you cannot make an appointment, notify your provider. CONTACT YOUR PRIMARY CARE PROVIDER if you experience any of the following: - Difficulty following your treatment plan - Difficulty taking any of your medications CALL 911 OR GO TO THE EMERGENCY DEPARTMENT if you experience any of the following: - Sudden, severe abdominal pain or nausea/vomiting - Severe chest pain or chest pain that radiates to your jaw or arm - Sudden, severe shortness of breath or difficulty breathing Pending Studies at Discharge: No Stand-Alone Forms: My [facility], Smoking Cessation Medications and DC Order Prescriptions: Continued glipizide 10 mg tablet 10 mg PO BID Qty: 60 3RF empagliflozin 25 mg tablet 25 mg PO DAILY Qty: 90 3RF fenofibrate nanocrystallized 145 mg tablet 145 mg PO DAILY Qty: 90 3RF metformin 1,000 mg tablet 1,000 mg PO BID Qty: 180 3RF lisinopril 20 mg tablet 20 mg PO DAILY Qty: 90 1RF atorvastatin 20 mg tablet 20 mg PO DAILY Rx Instructions: Take 1 tablet by mouth once daily meloxicam 15 mg tablet 15 mg PO DAILY Rx Instructions: Take 1 tablet by mouth once daily Discharge Orders: Discharge Order (Routine); Ordered 07/24/24 Ordered By: Travis Schultz/Other Patient Handouts: ED Influenza (Adult) Admission Data Admit Date/Time: 07/20/24 01:51 Attending Provider: Giovani Hazel Admit Provider: Paxton Truong Primary Care Provider: Fausto Basurto Other Providers: Paxton Truong; Gaudencio Leon; Alicia Castillo; True Ibarra; Harrison Huerta; Martínez Farrell; Ashu Pereira; Ryan Anders; Giovani Wooten Other Interventions: Discharge Summary Assessment (RN) Last Done: 07/24/24 11:33 Supervising Physician Co-Signing Physician Notes Attending attestation Pt seen and examined in concert with [facility]. Dr. Arevalo. In agreement with the documented findings as noted in the resident documentation with any exceptions or additions as noted here. No further symptoms reported, feeling at baseline. V/S as noted. On examination, S1/S2 nl RRR no MCG. CTAB. Abd NT/ND BS+ve Pancytopenia - hematology recommends ongoing monitoring outpatient without consult. Recommend recheck labs at follow up Tuesday/Tuesday Hyponatremia, hyponatremic - improved w/ IV hydration. Encouarge POI and hydration now that illness improving, recheck BMP as above. Else see resident documentation as noted. Total attending physician time spent with this patient's care on the day of discharge: 40 min Resident Activity Tracking Resident Involvement: Resident Care Provided Care Provided: Adult Hospital Medicine
--- NOTE | 2024-07-25 14:29 | Coding Query ---
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 Please assist us with the question(s) below: Coding Question(s): H&P listed Hyponatremia likely secondary to mild SIADH associated with influenza A. Please clarify is SIADH is indeed a treated dx during this pt stay. Physician's Response(s): Not treated, more a suspicion and way more likely due to GI losses prior to admission. Thanks! Thank you Svetlana Caba Principal Diagnosis: "that condition established after study, to be chiefly responsible for occasioning the admission of the patient to the hospital for care." Co-Existing Principal Diagnosis: "when two or more diagnoses equally meet the criteria for principal diagnosis as determined by the circumstances of admission, diagnostic work up, and/or therapy provided, and the Alphabetic Index, Tabular List, or another coding guideline does not provide sequencing direction, any one of the diagnoses may be sequenced first." "When the physician has documented what appears to be a current diagnosis in the body of the record, but has not included the diagnosis in the final diagnostic statement, the physician should be asked whether the diagnosis should be added." (Source [facility]oding [facility] 2 QTR90. p3-4) DORA
== END 2024-07-24 12:00 | disposition home or self-care (01) | DRG 641 ==
LOC: ED 22:40 → SUATTDRO 07-20 01:51 → EDINP 07-20 01:51 → 3E 07-20 02:21